=== PATIENT | male | born 1990 | race Caucasian/White ===

== ENCOUNTER 2017-10-30 16:40 | Emergency (ER) | payer MEDICAID, OTHER ==
--- NOTE | 2017-10-30 17:59 | ED PDOC ---
HPI: Seizure Time Seen by Provider: 10/30/17 17:00 Chief Complaint (Nursing): Seizure Chief Complaint (Provider): Seizure History Per: Patient History/Exam Limitations: no limitations Additional Complaint(s): 27 year old male with a past medical history of seizure and former alcoholic ( quit 3 months ago) who presents to the emergency department after experiencing a seizure while working at a [employer]. Reports he fell on the left side of his body while someone witnessed a generalized seizure. States he feels a little better but still has pain to the left side of the face. Associated with a dry cough that has been ongoing for 1 week and feeling anxious lately. Denies fever, vomiting, or diarrhea. Of note, patient is non compliant with seizure medications, Dilantin. Past Medical History Reviewed: Historical Data, Nursing Documentation, Vital Signs Vital Signs: Last Vital Signs Temp 98 F 10/30/17 19:25 Pulse 78 10/30/17 19:25 Resp 20 10/30/17 19:25 BP 120/70 10/30/17 19:25 Pulse Ox 98 10/30/17 19:25 - Medical History PMH: Seizures - Surgical History Surgical History: No Surg Hx - Family History Family History: States: Unknown Family Hx - Social History Current smoker - smoking cessation education provided: No Alcohol: None (Formal alcoholic; quit 3 months ago.) Drugs: Denies - Home Medications Home Medications: Ambulatory Orders Medication Instructions Recorded Phenytoin Sodium Extended 100 mg PO DAILY 07/13/17 [Phenytoin Sodium Extended] chlordiazePOXIDE [Chlordiazepoxide 25 mg PO BID #6 cap 07/13/17 HCl] - Allergies Allergies/Adverse Reactions: Allergies Allergy/AdvReac Type Severity Reaction Status Date / Time No Known Allergies Allergy Unverified 07/13/17 18:00 Review of Systems ROS Statement: Except As Marked, All Systems Reviewed And Found Negative (As per HPI, otherwise negative) Constitutional: Negative for: Fever Respiratory: Positive for: Cough Gastrointestinal: Negative for: Vomiting, Diarrhea Musculoskeletal: Positive for: Other (facial pain) Neurological: Positive for: Seizures (1) Psych: Positive for: Anxiety Physical Exam - Reviewed Nursing Documentation Reviewed: Yes Vital Signs Reviewed: Yes - Physical Exam Appears: Positive for: No Acute Distress Head Exam: Positive for: ATRAUMATIC, NORMAL INSPECTION, NORMOCEPHALIC Skin: Positive for: Normal Color, Warm, Dry Neck: Positive for: Normal Cardiovascular/Chest: Positive for: Regular Rate, Rhythm. Negative for: Murmur Respiratory: Positive for: Normal Breath Sounds. Negative for: Accessory Muscle Use, Respiratory Distress Gastrointestinal/Abdominal: Positive for: Normal Exam, Soft. Negative for: Tenderness Extremity: Positive for: Normal ROM. Negative for: Pedal Edema Neurologic/Psych: Positive for: Alert, senior research consultant II-XII, Oriented (x3), Gait (stable) . Negative for: Motor/Sensory Deficits, Aphasia, Facial Droop - Laboratory Results Result Diagrams: 10/30/17 17:49 10/30/17 17:49 - ECG O2 Sat by Pulse Oximetry: 99 (RA) Pulse Ox Interpretation: Normal Medical Decision Making Medical Decision Making: Time: 1735 Initial impression: Seizure in setting of known non compliance with medication Initial plan: CBC w/ diff CMP Chest x-ray Head CT Maxillofacial w/o contrast CT Reevaluation Time: 1809 --Head CT FINDINGS: HEMORRHAGE: No intracranial hemorrhage. BRAIN: Normal garcia-white matter differentiation and density are appreciated throughout the cerebrum and cerebellum with the brainstem appearing unremarkable as well. There is no mass effect. There is no suspicious extra-axial fluid collection and the midline brain anatomy appears diffusely unremarkable. VENTRICLES: Unremarkable. No hydrocephalus. CALVARIUM: No destructive bony lesion or displaced fracture identified including through the skullbase. PARANASAL SINUSES: Small polyp or cyst left sphenoid sinus. MASTOID AIR CELLS: Unremarkable as visualized. No inflammatory changes. OTHER FINDINGS: None. IMPRESSION: Unremarkable unenhanced CT of the Head. Time: 1814 --Referred to psych because he states he is feeling very anxious. Time: 1827 --Maxill facial FINDINGS: NASAL BONES: Unremarkable. ORBITS: Borderline bilateral medial periorbital soft tissue edema with no bony fracture throughout the bilateral orbits. PARANASAL SINUSES/ MASTOIDS: Clear. MAXILLA: Unremarkable. MANDIBLE/ TEMPOROMANDIBULAR JOINTS: Unremarkable. SKULL BASE: Unremarkable. TEMPORAL BONES: Middle ears and mastoid grossly unremarkable. OTHER FINDINGS: Left maxillary sinus disease incidentally noted. IMPRESSION: Mild bilateral medial preseptal orbital soft tissue edema is questioned without fracture of the facial bones identified bilaterally, including orbits. Incidental left maxillary sinus disease identified. pt aware of CT results Time: 1899 --Transferred to Dr. Yan. --pending work up and reevaluation. --EKG: Normal sinus rhythm at 52 bpm . Chest x-ray indicate no active disease pt cleared by animal husbandry worker as anxiety. given outpt referral for mental health. discussed with patient the important of taking the dilantin for his histoyr of seizures. and the need to follow up with neurologist. he agrees to follow up. instrcuted to return immediately with any worsening or concerning symptoms Scribe Attestation: Documented by Leidy Marte, acting as a scribe for Melanie Snyder MD Provider Scribe Attestation: All medical record entries made by the Scribe were at my direction and personally dictated by me. I have reviewed the chart and agree that the record accurately reflects my personal performance of the history, physical exam, medical decision making, and the department course for this patient. I have also personally directed, reviewed, and agree with the discharge instructions and disposition. Disposition - Clinical Impression Clinical Impression: Anxiety, Seizure - Patient ED Disposition Is Patient to be Admitted: No Counseled Patient/Family Regarding: Studies Performed, Diagnosis, Need For Followup - Disposition Referrals: [facility] [Outside] [facility] [Outside] Panchito Mcnamara MD [Staff Provider] - Disposition: Transfer of Care Disposition Time: 19:00 Condition: IMPROVED Additional Instructions: follow up with outpatient neurology for management of your seizures and to restart your medications also follow up with outpatient psychiatry return to the ED with any worsening or concerning symptoms Instructions: Anxiety, Adult (DC), Seizures, Adult (DC) Forms: [employer] ([place]) Patient Signed Over To: Vern Yan
[2017-10-30 18:02] LABS: BASO % 0.4 % (0.0-2.0); EOS % 0.9 % (0.0-4.0); HEMOGLOBIN 15.6 g/dL (12.0-18.0); LYMPH % 40.7 % (20.0-40.0); MEAN CELL VOLUME 88.1 fl (80.0-94.0); MEAN CORPUSCULAR HEMOGLOBIN 29.5 pg (27.0-31.0); MEAN CORPUSCULAR HGB CONC 33.5 g/dL (33.0-37.0); MEAN PLATELET VOLUME 8.8 fl (7.2-11.7); MONO # 0.3 K/uL (0.0-0.8); MONO % 5.9 % (0.0-10.0); NEUT # 2.6 K/uL (1.8-7.0); NEUT % 52.1 % (50.0-75.0); NRBC % 0.1 % (0.0-0.0); RBC 5.27 Mil/uL (4.40-5.90); RED CELL DISTRIBUTION WIDTH 14.1 % (11.5-14.5)
[2017-10-30 18:08] LABS: ALB/GLOB RATIO 1.2 (1.0-2.1); ALBUMIN 4.4 g/dL (3.5-5.0); ALT/SGPT 44 U/L (21-72); AST/SGOT 40 U/L (17-59); BLOOD UREA NITROGEN 20 mg/dl (9-20); CALCIUM 9.1 mg/dL (8.4-10.2); GFR AFRICAN-AMERICAN > 60; GFR NON-AFRICAN AMERICAN > 60
--- NOTE | 2017-10-30 18:13 | CT ---
PROCEDURE: CT HEAD WITHOUT CONTRAST. HISTORY: headache COMPARISON: None available. TECHNIQUE: Axial computed tomography images were obtained through the head/brain without intravenous contrast. Radiation dose: Total exam DLP = 774.42 mGy-cm. This CT exam was performed using one or more of the following dose reduction techniques: Automated exposure control, adjustment of the mA and/or kV according to patient size, and/or use of iterative reconstruction technique. FINDINGS: HEMORRHAGE: No intracranial hemorrhage. BRAIN: Normal garcia-white matter differentiation and density are appreciated throughout the cerebrum and cerebellum with the brainstem appearing unremarkable as well. There is no mass effect. There is no suspicious extra-axial fluid collection and the midline brain anatomy appears diffusely unremarkable. VENTRICLES: Unremarkable. No hydrocephalus. CALVARIUM: No destructive bony lesion or displaced fracture identified including through the skullbase. PARANASAL SINUSES: Small polyp or cyst left sphenoid sinus. MASTOID AIR CELLS: Unremarkable as visualized. No inflammatory changes. OTHER FINDINGS: None. IMPRESSION: Unremarkable unenhanced CT of the Head.
--- NOTE | 2017-10-30 18:29 | CT ---
PROCEDURE: CT MAXILLOFACIAL BONES WITHOUT CONTRAST HISTORY: seizure and fall COMPARISON: None TECHNIQUE: Contiguous axial CT images of the maxillofacial bones were obtained. Coronal and sagittal reformats were generated. Radiation dose: Total exam DLP = mGy-cm. This CT exam was performed using one or more of the following dose reduction techniques: Automated exposure control, adjustment of the mA and/or kV according to patient size, and/or use of iterative reconstruction technique. FINDINGS: NASAL BONES: Unremarkable. ORBITS: Borderline bilateral medial periorbital soft tissue edema with no bony fracture throughout the bilateral orbits. PARANASAL SINUSES/ MASTOIDS: Clear. MAXILLA: Unremarkable. MANDIBLE/ TEMPOROMANDIBULAR JOINTS: Unremarkable. SKULL BASE: Unremarkable. TEMPORAL BONES: Middle ears and mastoid grossly unremarkable. OTHER FINDINGS: Left maxillary sinus disease incidentally noted. IMPRESSION: Mild bilateral medial preseptal orbital soft tissue edema is questioned without fracture of the facial bones identified bilaterally, including orbits. Incidental left maxillary sinus disease identified.
--- NOTE | 2017-10-30 18:50 | RAD ---
HISTORY: Cough. COMPARISON: No prior. TECHNIQUE: Chest PA and lateral FINDINGS: LUNGS: No active pulmonary disease. PLEURA: No significant pleural effusion identified. No pneumothorax apparent. CARDIOVASCULAR: Normal. OSSEOUS STRUCTURES: No significant abnormalities. VISUALIZED UPPER ABDOMEN: Normal. OTHER FINDINGS: None. IMPRESSION: No active disease.
--- NOTE | 2017-10-30 19:10 | ED PDOC ---
- Laboratory Results Result Diagrams: 10/30/17 17:49 10/30/17 17:49 - ECG O2 Sat by Pulse Oximetry: 99 (RA) Pulse Ox Interpretation: Normal Medical Decision Making Medical Decision Making: Time: 1899 --Patient endorsed from Dr. Navarro to me. --Pending crisis, reevaluation and dispo. Scribe Attestation: Documented by Leidy Marte, acting as a scribe for Vern Yan MD Provider Scribe Attestation: All medical record entries made by the Scribe were at my direction and personally dictated by me. I have reviewed the chart and agree that the record accurately reflects my personal performance of the history, physical exam, medical decision making, and the department course for this patient. I have also personally directed, reviewed, and agree with the discharge instructions and disposition. Disposition - Disposition Condition: STABLE Forms: [employer] ([place]an)
[2017-10-30 19:27] VITALS: BP 120/70; PULSE 78; RESP 20; TEMP 98
[2017-11-04 16:27] VITALS: O2SAT 99
== END 2017-10-30 19:25 | disposition home or self-care (01) ==
LOC: H.ER 16:40
DX: R56.9 Unspecified convulsions (principal); F41.9 Anxiety disorder, unspecified; Z91.14 Patient's other noncompliance with medication regimen

== ENCOUNTER 2018-01-10 22:38 | Inpatient (IN) | payer MEDICAID, OTHER ==
[2018-01-10] MEDS ORDERED: Alum-Mag Hydrox-Simethicone Susp (30 mL) PO STA (23:08)
[2018-01-10] MEDS ORDERED: Sodium Chloride 0.9% 1,000 ML IV STA (23:09)
--- NOTE | 2018-01-10 23:16 | ED PDOC ---
HPI:Nausea, Vomiting, Diarrhea Time Seen by Provider: 01/10/18 22:48 Chief Complaint (Nursing): GI Problem Chief Complaint (Provider): GI Problem History Per: Patient History/Exam Limitations: no limitations Onset/Duration Of Symptoms: Hrs (x 3 (8 pm) ) Current Symptoms Are (Timing): Still Present Associated Symptoms: Vomiting Additional Complaint(s): 27 year old male with history of seizures and an esophageal tear (1 year ago) presents to the ED with vomiting since 8 pm this evening. 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 He had two episodes of vomiting clear liquid which he followed with drinking a lot of water. Shortly after, he vomited again, but only blood twice. Patient complains of some post- vomiting chest pain. He has not eaten anything all day and denies diarrhea, abdominal pain, and nausea. PMD: none provided Past Medical History Reviewed: Historical Data, Nursing Documentation, Vital Signs Vital Signs: Last Vital Signs Temp 98 F 01/10/18 22:44 Pulse 61 01/10/18 22:44 Resp 20 01/10/18 22:44 BP 141/76 01/10/18 22:44 Pulse Ox 100 01/10/18 22:44 - Medical History PMH: Seizures - Surgical History Surgical History: No Surg Hx - Family History Family History: States: Unknown Family Hx - Social History Alcohol: None - Home Medications Home Medications: Ambulatory Orders Medication Instructions Recorded Mirtazapine [Remeron] 30 mg PO HS 01/11/18 OXcarbazepine [Trileptal] 150 mg PO BID 01/11/18 Ondansetron ODT [Zofran ODT] 4 mg PO Q8 PRN #12 odt 01/11/18 - Allergies Allergies/Adverse Reactions: Allergies Allergy/AdvReac Type Severity Reaction Status Date / Time No Known Allergies Allergy Verified 01/10/18 22:44 Review of Systems ROS Statement: Except As Marked, All Systems Reviewed And Found Negative Gastrointestinal: Positive for: Vomiting. Negative for: Nausea, Abdominal Pain , Diarrhea Physical Exam - Reviewed Nursing Documentation Reviewed: Yes Vital Signs Reviewed: Yes - Physical Exam Appears: Positive for: Non-toxic, No Acute Distress Head Exam: Positive for: ATRAUMATIC, NORMAL INSPECTION, NORMOCEPHALIC Skin: Positive for: Normal Color, Warm, Dry Eye Exam: Positive for: EOMI, Normal appearance, PERRL Neck: Positive for: Normal, Painless ROM, Supple Cardiovascular/Chest: Positive for: Regular Rate, Rhythm. Negative for: Murmur Respiratory: Positive for: Normal Breath Sounds. Negative for: Respiratory Distress Gastrointestinal/Abdominal: Positive for: Normal Exam, Soft. Negative for: Tenderness Back: Positive for: Normal Inspection. Negative for: L CVA Tenderness, R CVA Tenderness Extremity: Positive for: Normal ROM. Negative for: Deformity Neurologic/Psych: Positive for: Alert, Oriented (x 3). Negative for: Motor/ Sensory Deficits - Laboratory Results Result Diagrams: 01/11/18 12:00 01/11/18 12:00 - ECG O2 Sat by Pulse Oximetry: 100 (RA) Pulse Ox Interpretation: Normal Medical Decision Making Medical Decision Makin:08 Impression: vomiting and vomiting with blood Differential diagnoses include but are not limited to: acute gastritis, acute pancreatitis; GI bleed Caitlyn-Blount vs PUD Initial Plan: --Blood type --CMP --UDS --Lipase --CBC --PTT --Prothrombin -_CXR --Lidocaine 2% --Maalox 30 ml PO --Pepcid 20 mg IVP --Zofran 4 mg IVP Lab results reveal elevated LFTs and bilirubin. 00:25 --Abdomen US --Bilirubin --Tegretol 400 mg PO Time: 02:38 Abdomen US FINDINGS: Liver: The liver is increased in echogenicity and measures 17.9 cm. No intrahepatic bile duct dilation. Gallbladder: The gallbladder wall is not significantly thickened, measuring approximately 3 mm. No stones or sludge is seen within the gallbladder. Common bile duct: The common bile duct measures 4 mm. No stones. No dilation. Pancreas: Visualized pancreas is unremarkable. Right kidney: The right kidney measures 10.3 cm and is unremarkable. No stones. No hydronephrosis. Aorta: Visualized aorta and IVC are unremarkable. IMPRESSION: Hepatic steatosis. Time; 06:00 --Spoke to Dr. Alli Smith who recommends IV protonix, no NG tube, and admission. Time: 06:45 --Patient will be admitted due to upper GI bleed with positive orthostatics and elevated LFTs. Scribe Attestation: Documented by Tania Carvalho, acting as a scribe for Sierra Rodriguez MD Provider Scribe Attestation: All medical record entries made by the Scribe were at my direction and personally dictated by me. I have reviewed the chart and agree that the record accurately reflects my personal performance of the history, physical exam, medical decision making, and the department course for this patient. I have also personally directed, reviewed, and agree with the discharge instructions and disposition. Disposition - Clinical Impression Clinical Impression: Vomiting, Elevated LFTs, Upper GI hemorrhage - Patient ED Disposition Is Patient to be Admitted: Yes Discussed With : Aisha Bassett Doctor Will See Patient In The: ED Counseled Patient/Family Regarding: Studies Performed, Diagnosis - Disposition Disposition Time: 06:30 Condition: FAIR - Pt Status Changed To: Hospital Disposition Of: Inpatient - Admit Certification Admit to Inpatient:: After my assessment, the patient will require hospitalization for at least two midnights. This is because of the severity of symptoms shown, intensity of services needed, and/or the medical risk in this patient being treated as an outpatient. - POA Present On Arrival: None
[2018-01-10 23:43] LABS: BASO % 0.3 % (0.0-2.0); EOS % 0.3 % (0.0-4.0); HEMOGLOBIN 13.8 g/dL (12.0-18.0); LYMPH # 2.4 K/uL (1.0-4.3); LYMPH % 41.7 % (20.0-40.0); MEAN CELL VOLUME 93.5 fl (80.0-94.0); MEAN CORPUSCULAR HEMOGLOBIN 33.4 pg (27.0-31.0); MEAN CORPUSCULAR HGB CONC 35.7 g/dL (33.0-37.0); MEAN PLATELET VOLUME 9.5 fl (7.2-11.7); MONO # 0.5 K/uL (0.0-0.8); MONO % 8.8 % (0.0-10.0); NEUT # 2.8 K/uL (1.8-7.0); NEUT % 48.9 % (50.0-75.0); NRBC % 0.1 % (0.0-0.0); RBC 4.14 Mil/uL (4.40-5.90); RED CELL DISTRIBUTION WIDTH 16.6 % (11.5-14.5); WHITE BLOOD COUNT 5.8 K/uL (4.8-10.8)
[2018-01-10 23:59] LABS: INR 1.2 (0.9-1.2); PARTIAL THROMBOPLASTIN TIME 28.5 Seconds (25.6-37.1); PROTHROMBIN TIME 12.8 Seconds (9.8-13.1)
[2018-01-11 00:03] LABS: CALCIUM 8.8 mg/dL (8.4-10.2); GFR AFRICAN-AMERICAN > 60; GFR NON-AFRICAN AMERICAN > 60; LIPASE 155 U/L (23-300)
[2018-01-11 00:04] LABS: ALB/GLOB RATIO 1.1 (1.0-2.1); ALBUMIN 3.9 g/dL (3.5-5.0); ALT/SGPT 322 U/L (21-72); AST/SGOT 640 U/L (17-59); BLOOD UREA NITROGEN 22 mg/dl (9-20)
[2018-01-11] MEDS ORDERED: Alum-Mag Hydrox-Simethicone Susp (30 mL) ONE (00:33)
[2018-01-11] MEDS ORDERED: Sodium Chloride 0.9% 1,000 ML IV STA (06:42)
[2018-01-11] MEDS ORDERED: Pantoprazole 40 MG in Sodium Chloride 0.9% 100 ML IVPB ONE (06:44)
[2018-01-11 07:20] LABS: MEAN CELL VOLUME 94.8 fl (80.0-94.0); MEAN CORPUSCULAR HEMOGLOBIN 35.1 pg (27.0-31.0); RBC 2.85 Mil/uL (4.40-5.90); RED CELL DISTRIBUTION WIDTH 16.3 % (11.5-14.5); WHITE BLOOD COUNT 4.9 K/uL (4.8-10.8)
--- NOTE | 2018-01-11 07:58 | CP.PCM.HP ---
History of Present Illness - History of Present Illness History of Present Illness: Chief Complaint : Hematemesis HPI: 27 y/o male, with hx of Alcoholism( quit 2 yrs ago) , Seizure Disorder, Previous Esophageal Tear, Depression, was brought in because of hematemesis. Patient has been doing fine, until 1 day prior to presentation to the ED that he started feeling nauseous. 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 This persisted throughout the day- vomiting liquid until the night time when he started having bloody vomitus. He denies any recent alcohol intake ( last was 1 drink in November ) , admits to smoking Marijuana a few days ago. He had sushi 1 day prior however denies having any abdominal pain nor diarrhea. He takes his Trileptal for his seizure and Remeron at bedtime for Depression however admits to having Tylenol pm almost daily for his Insomnia. His boss called 911 and while in the ambulance , he vomited a large amount of blood and had any episode in the ED. At present , feels lightheaded. He had a similar episode 1 1/2 years ago - had EGD at a [facility] and was told he had an Esophageal tear. Neuro : Dr Mcnamara Present on Admission - Present on Admission Any Indicators Present on Admission: No Review of Systems - Review of Systems All systems: reviewed and no additional remarkable complaints except - Constitutional Constitutional: Weakness - EENT Eyes: absent: Blurred Vision, Change in Vision Ears: Dizziness. absent: Decreased Hearing Nose/Mouth/Throat: absent: Nasal Congestion, Nasal Discharge - Cardiovascular Cardiovascular: Lightheadedness. absent: Chest Pain, Chest Pain at Rest - Respiratory Respiratory: absent: Cough, Dyspnea, Dyspnea on Exertion - Gastrointestinal Gastrointestinal: Hematemesis, Nausea, Vomiting. absent: Abdominal Pain, Constipation, Diarrhea - Genitourinary Genitourinary: absent: Difficulty Urinating, Dysuria - Musculoskeletal Musculoskeletal: absent: Arthralgias, Back Pain - Integumentary Integumentary: absent: Bleeding Lesions - Neurological Neurological: absent: Confusion, Focal Weakness, Memory Loss - Psychiatric Psychiatric: Depression. absent: Anxiety, Confusion - Endocrine Endocrine: absent: Polydipsia, Polyphagia, Polyuria - Hematologic/Lymphatic Hematologic: absent: Easy Bleeding, Easy Bruising Past Patient History - Infectious Disease Hx of Infectious Diseases: None - Tetanus Immunizations Tetanus Immunization: Unknown - Past Medical History & Family History Past Medical History?: Yes Past Family History: Reviewed and not pertinent Pertinent Family History: DM - grandparents Asthma - father - Past Social History Smoking Status: Light Smoker < 10 Cigarettes Daily Chewing Tobacco Use: No Cigar Use: No Occupation: [employer] Alcohol: None Drugs: Cannabis Domestic Violence: Negative - CARDIAC Hx Cardiac Disorders: No - PULMONARY Hx Respiratory Disorders: No - NEUROLOGICAL Hx Neurological Disorder: Yes Hx Seizures: Yes - HEENT Hx HEENT Problems: No - RENAL Hx Chronic Kidney Disease: No - ENDOCRINE/METABOLIC Hx Endocrine Disorders: No - HEMATOLOGICAL/ONCOLOGICAL Hx Blood Disorders: No Hx Blood Transfusions: Yes - INTEGUMENTARY Hx Dermatological Problems: No - MUSCULOSKELETAL/RHEUMATOLOGICAL Hx Musculoskeletal Disorders: No - GASTROINTESTINAL Hx Gastrointestinal Disorders: Yes (Esophageal Tear) - GENITOURINARY/GYNECOLOGICAL Hx Genitourinary Disorders: No - PSYCHIATRIC Hx Psychophysiologic Disorder: Yes Hx Depression: Yes Hx Substance Use: Yes (yes - Alcohol - quit 2 yrs ago) - SURGICAL HISTORY Hx Surgeries: No - ANESTHESIA Hx Anesthesia: No Hx Anesthesia Reactions: No Hx Malignant Hyperthermia: No Meds Home Medications: Home Medication List Medication Instructions Recorded Confirmed Type Ondansetron ODT [Zofran ODT] 4 mg PO Q8 PRN #12 odt 01/11/18 Rx Allergies/Adverse Reactions: Allergies Allergy/AdvReac Type Severity Reaction Status Date / Time No Known Allergies Allergy Verified 01/10/18 22:44 Physical Exam - Constitutional Appears: Non-toxic, No Acute Distress - Head Exam Head Exam: ATRAUMATIC, NORMAL INSPECTION, NORMOCEPHALIC - Eye Exam Eye Exam: EOMI, Normal appearance, PERRL Pupil Exam: NORMAL ACCOMODATION - ENT Exam ENT Exam: Mucous Membranes Dry, Normal External Ear Exam - Neck Exam Neck exam: Positive for: Full Rom. Negative for: Meningismus - Respiratory Exam Respiratory Exam: NORMAL BREATHING PATTERN. absent: Rales, Rhonchi, Wheezes, Respiratory Distress - Cardiovascular Exam Cardiovascular Exam: REGULAR RHYTHM, +S1, +S2 - GI/Abdominal Exam GI & Abdominal Exam: Normal Bowel Sounds, Soft. absent: Tenderness - Extremities Exam Extremities exam: Positive for: full ROM, normal capillary refill, pedal pulses present. Negative for: calf tenderness, pedal edema - Back Exam Back exam: FULL ROM, NORMAL INSPECTION. absent: CVA tenderness (L), CVA tenderness (R), paraspinal tenderness, vertebral tenderness - Neurological Exam Neurological exam: Alert, CN II-XII Intact, Oriented x3, Reflexes Normal - Psychiatric Exam Psychiatric exam: Normal Affect, Normal Mood - Skin Skin Exam: Dry, Normal Color, Warm Results - Vital Signs Recent Vital Signs: Last Vital Signs Temp 98 F 01/10/18 22:44 Pulse 88 01/11/18 01:17 Resp 16 01/11/18 01:17 BP 103/59 L 01/11/18 01:17 Pulse Ox 100 01/11/18 06:55 - Labs Result Diagrams: 01/11/18 07:15 01/10/18 23:30 Labs: Laboratory Results - last 24 hr 01/10/18 01/10/18 01/10/18 23:30 23:30 23:30 WBC 5.8 RBC 4.14 L Hgb 13.8 Hct 38.7 MCV 93.5 D MCH 33.4 H MCHC 35.7 RDW 16.6 H Plt Count 170 MPV 9.5 Neut % (Auto) 48.9 L Lymph % (Auto) 41.7 H [place] % (Auto) 8.8 Eos % (Auto) 0.3 Baso % (Auto) 0.3 Neut # (Auto) 2.8 Lymph # (Auto) 2.4 [place] # (Auto) 0.5 Eos # (Auto) 0.0 Baso # (Auto) 0.0 PT 12.8 INR 1.2 APTT 28.5 Sodium 134 Potassium 4.2 Chloride 95 L Carbon Dioxide 22 Anion Gap 21 H BUN 22 H Creatinine 1.0 Est GFR ( Amer) > 60 Est GFR (Non-Af Amer) > 60 Random Glucose 96 Calcium 8.8 Total Bilirubin 3.0 H Direct Bilirubin AST 640 H D ALT 322 H D Alkaline Phosphatase 200 H D Total Protein 7.3 Albumin 3.9 Globulin 3.4 Albumin/Globulin Ratio 1.1 Lipase 155 Alcohol, Quantitative Blood Type Blood Type Confirm Antibody Screen BBK History Checked 01/11/18 01/11/18 01/11/18 00:10 00:53 01:20 WBC RBC Hgb Hct MCV MCH MCHC RDW Plt Count MPV Neut % (Auto) Lymph % (Auto) [place] % (Auto) Eos % (Auto) Baso % (Auto) Neut # (Auto) Lymph # (Auto) [place] # (Auto) Eos # (Auto) Baso # (Auto) PT INR APTT Sodium Potassium Chloride Carbon Dioxide Anion Gap BUN Creatinine Est GFR ( Amer) Est GFR (Non-Af Amer) Random Glucose Calcium Total Bilirubin Direct Bilirubin 2.1 H AST ALT Alkaline Phosphatase Total Protein Albumin Globulin Albumin/Globulin Ratio Lipase Alcohol, Quantitative Blood Type A POSITIVE Blood Type Confirm A POSITIVE Antibody Screen Negative BBK History Checked No verified bt 01/11/18 01/11/18 07:15 07:30 WBC 4.9 RBC 2.85 L Hgb 10.0 L D Hct 27.0 L MCV 94.8 H MCH 35.1 H MCHC 37.0 RDW 16.3 H Plt Count 146 MPV Neut % (Auto) Lymph % (Auto) [place] % (Auto) Eos % (Auto) Baso % (Auto) Neut # (Auto) Lymph # (Auto) [place] # (Auto) Eos # (Auto) Baso # (Auto) PT INR APTT Sodium Potassium Chloride Carbon Dioxide Anion Gap BUN Creatinine Est GFR ( Amer) Est GFR (Non-Af Amer) Random Glucose Calcium Total Bilirubin Direct Bilirubin AST ALT Alkaline Phosphatase Total Protein Albumin Globulin Albumin/Globulin Ratio Lipase Alcohol, Quantitative < 10 Blood Type Blood Type Confirm Antibody Screen BBK History Checked Assessment & Plan (1) Upper GI hemorrhage Status: Acute (2) Elevated LFTs Status: Acute (3) Seizure Status: Chronic (4) Depression Status: Chronic - Assessment and Plan (Free Text) Assessment: 27 y/o gent , brought in because of hematemesis after several episodes of vomiting . Previous hx of esophageal Tear (2016) (1) Upper GI hemorrhage prob sec to Deyanira Blount Tear Status: Acute IVF hydration Transfuse prn Protonix bolus followed by drip GI consult - Dr Smith was called by ED physiciam serial CBC (2) Elevated LFTs Status: Acute unclear etiology - hx of daily Tylenol pm intake for sleep, also on Trileptal and Remeron previous hx of Alcoholism check Hepatitis panel GI consult Navdeep Chen (3) Seizure Status: Chronic cont Trileptal follows up with Dr Mcnamara (4) Depression Status: Chronic cont Remeron stable 5. Acute Blood Loss Anemia Hbg dropped from 13.8 to 10 Transfuse prn monitor closely Crossmatch PRBC DVT proph - SCD , no anticoag sec to GI bleed Decision To Admit - Pt Status Changed To: Hospital Disposition Of: Inpatient - Admit Certification Admit to Inpatient:: After my assessment, the patient will require hospitalization for at least two midnights. This is because of the severity of symptoms shown, intensity of services needed, and/or the medical risk in this patient being treated as an outpatient. - . Bed Request Type: Telemetry Admitting Physician: Aisha Bassett
[2018-01-11] MEDS: Pantoprazole 40 MG in Sodium Chloride 0.9% 100 ML IVPB SCH ×2 (08:01→12:27)
[2018-01-11] MEDS: Sodium Chloride 0.9% 1,000 ML IV SCH ×2 (08:20→14:46)
[2018-01-11] MEDS ORDERED: Thiamine 100 mg/ml Inj IM SCH (09:00)
[2018-01-11] MEDS ORDERED: Sodium Chloride 0.9% 500 ML IV ONE (09:18)
--- NOTE | 2018-01-11 09:21 | RAD ---
Date of service: 01/11/2018 PROCEDURE: CHEST RADIOGRAPH, 1 VIEW HISTORY: chest pain COMPARISON: Chest radiograph dated 10/30/2017. FINDINGS: LUNGS: Clear. PLEURA: No pneumothorax or pleural fluid seen. CARDIOVASCULAR: Normal. OSSEOUS STRUCTURES: No significant abnormalities. VISUALIZED UPPER ABDOMEN: Left upper quadrant surgical clips redemonstrated. OTHER FINDINGS: None. IMPRESSION: No active disease.
--- NOTE | 2018-01-11 09:22 | US ---
Date of service: 01/11/2018 HISTORY: vomiting and elevated LFTs COMPARISON: None. TECHNIQUE: Sonographic evaluation of the right upper quadrant of the abdomen. FINDINGS: LIVER: Enlarged, measuring 17.9 cm in length. Increased echogenicity of the liver parenchyma. No mass. No intrahepatic bile duct dilatation. GALLBLADDER: Unremarkable. No gallstones. COMMON BILE DUCT: Measures 4 mm. No stones. No dilatation. PANCREAS: Unremarkable as visualized. No mass. No ductal dilatation. RIGHT KIDNEY: Measures 10.3 x 5.8 x 4.3 cm in length. Normal echogenicity. No calculus, mass, or hydronephrosis. AORTA: No aneurysmal dilatation. IVC: Unremarkable. OTHER FINDINGS: None . IMPRESSION: Hepatic steatosis.
[2018-01-11 12:36] LABS: ALBUMIN 2.2 g/dL (3.5-5.0); ALT/SGPT 232 U/L (21-72); AST/SGOT 477 U/L (17-59); BLOOD UREA NITROGEN 23 mg/dl (9-20); CALCIUM 7.1 mg/dL (8.4-10.2); GFR AFRICAN-AMERICAN > 60; GFR NON-AFRICAN AMERICAN > 60
--- NOTE | 2018-01-11 12:44 | CP.PCM.CON ---
History of Present Illness - History of Present Illness History of Present Illness: 27 yo male admitted with dizzyness, hematemesis , and elevated liver enzymes.Symptoms started when working at [employer] and started vomiting clear liquids. After repeated vomiting his emesis was bloody. On trileptal for control of siezures. Also uses Remeron at bedtime and Tylenol for sleep. !.5 years ago also vomited blood and he was told he had esophageal tear. Review of Systems - Constitutional Constitutional: absent: Chills - EENT Eyes: absent: Blurred Vision Ears: absent: Decreased Hearing Nose/Mouth/Throat: absent: Epistaxis - Cardiovascular Cardiovascular: absent: Chest Pain - Respiratory Respiratory: absent: Dyspnea - Gastrointestinal Gastrointestinal: absent: Abdominal Pain - Genitourinary Genitourinary: absent: Change in Urinary Stream Past Patient History - Infectious Disease Hx of Infectious Diseases: None - Tetanus Immunizations Tetanus Immunization: Unknown - Past Medical History & Family History Past Medical History?: Yes Past Family History: Reviewed and not pertinent - Past Social History Smoking Status: Light Smoker < 10 Cigarettes Daily Chewing Tobacco Use: No Cigar Use: No Occupation: [employer] Alcohol: None Drugs: Cannabis Domestic Violence: Negative - CARDIAC Hx Cardiac Disorders: No - PULMONARY Hx Respiratory Disorders: No - NEUROLOGICAL Hx Neurological Disorder: Yes Hx Seizures: Yes - HEENT Hx HEENT Problems: No - RENAL Hx Chronic Kidney Disease: No - ENDOCRINE/METABOLIC Hx Endocrine Disorders: No - HEMATOLOGICAL/ONCOLOGICAL Hx Blood Disorders: No Hx Blood Transfusions: Yes - INTEGUMENTARY Hx Dermatological Problems: No - MUSCULOSKELETAL/RHEUMATOLOGICAL Hx Musculoskeletal Disorders: No - GASTROINTESTINAL Hx Gastrointestinal Disorders: Yes (Esophageal Tear) - GENITOURINARY/GYNECOLOGICAL Hx Genitourinary Disorders: No - PSYCHIATRIC Hx Psychophysiologic Disorder: Yes Hx Depression: Yes Hx Substance Use: Yes (yes - Alcohol - quit 2 yrs ago) - SURGICAL HISTORY Hx Surgeries: No - ANESTHESIA Hx Anesthesia: No Hx Anesthesia Reactions: No Hx Malignant Hyperthermia: No Meds Home Medications: Home Medication List Medication Instructions Recorded Confirmed Type Ondansetron ODT [Zofran ODT] 4 mg PO Q8 PRN #12 odt 01/11/18 Rx Allergies/Adverse Reactions: Allergies Allergy/AdvReac Type Severity Reaction Status Date / Time No Known Allergies Allergy Verified 01/10/18 22:44 - Medications Medications: Current Medications Pantoprazole Sodium 40 mg/ (Sodium Chloride) 100 mls @ 20 mls/hr IVPB Q5H [facility] PRN Reason: 8 MG/HR Last Admin: 01/11/18 12:27 Dose: 20 mls/hr Sodium Chloride (Sodium Chloride 0.9%) 1,000 mls @ 150 mls/hr IV .Q6H40M [facility] Stop: 01/12/18 07:38 Last Admin: 01/11/18 08:20 Dose: 150 mls/hr Mirtazapine (Remeron) 30 mg PO HS [facility] Ondansetron HCl (Zofran Inj) 4 mg IVP Q6 PRN PRN Reason: Nausea/Vomiting Oxcarbazepine (Trileptal) 150 mg PO BID [facility] Last Admin: 01/11/18 09:58 Dose: 150 mg Thiamine HCl (Vitamin B1 Inj) 100 mg IM DAILY [facility] Last Admin: 01/11/18 09:59 Dose: 100 mg Physical Exam - Constitutional Appears: No Acute Distress - Head Exam Head Exam: ATRAUMATIC - Eye Exam Eye Exam: Normal appearance Pupil Exam: NORMAL ACCOMODATION - ENT Exam ENT Exam: Mucous Membranes Moist - Neck Exam Neck exam: Positive for: Normal Inspection - Respiratory Exam Respiratory Exam: NORMAL BREATHING PATTERN - Cardiovascular Exam Cardiovascular Exam: REGULAR RHYTHM, +S1, +S2 - GI/Abdominal Exam GI & Abdominal Exam: Normal Bowel Sounds, Soft. absent: Tenderness - Exam External exam: absent: NORMAL EXTERNAL EXAM Results - Vital Signs Recent Vital Signs: Last Vital Signs Temp 98.9 F 01/11/18 12:00 Pulse 104 H 01/11/18 12:00 Resp 20 01/11/18 12:00 BP 94/59 L 01/11/18 12:00 Pulse Ox 100 01/11/18 12:00 - Labs Result Diagrams: 01/11/18 07:15 01/11/18 12:00 Labs: Laboratory Results - last 24 hr 01/10/18 01/10/18 01/10/18 23:30 23:30 23:30 WBC 5.8 RBC 4.14 L Hgb 13.8 Hct 38.7 MCV 93.5 D MCH 33.4 H MCHC 35.7 RDW 16.6 H Plt Count 170 MPV 9.5 Neut % (Auto) 48.9 L Lymph % (Auto) 41.7 H [place] % (Auto) 8.8 Eos % (Auto) 0.3 Baso % (Auto) 0.3 Neut # (Auto) 2.8 Lymph # (Auto) 2.4 [place] # (Auto) 0.5 Eos # (Auto) 0.0 Baso # (Auto) 0.0 PT 12.8 INR 1.2 APTT 28.5 Sodium 134 Potassium 4.2 Chloride 95 L Carbon Dioxide 22 Anion Gap 21 H BUN 22 H Creatinine 1.0 Est GFR ( Amer) > 60 Est GFR (Non-Af Amer) > 60 Random Glucose 96 Calcium 8.8 Total Bilirubin 3.0 H Direct Bilirubin AST 640 H D ALT 322 H D Alkaline Phosphatase 200 H D Total Protein 7.3 Albumin 3.9 Globulin 3.4 Albumin/Globulin Ratio 1.1 Lipase 155 Alcohol, Quantitative Blood Type Blood Type Confirm Antibody Screen BBK History Checked 01/11/18 01/11/18 01/11/18 00:10 00:53 01:20 WBC RBC Hgb Hct MCV MCH MCHC RDW Plt Count MPV Neut % (Auto) Lymph % (Auto) [place] % (Auto) Eos % (Auto) Baso % (Auto) Neut # (Auto) Lymph # (Auto) [place] # (Auto) Eos # (Auto) Baso # (Auto) PT INR APTT Sodium Potassium Chloride Carbon Dioxide Anion Gap BUN Creatinine Est GFR ( Amer) Est GFR (Non-Af Amer) Random Glucose Calcium Total Bilirubin Direct Bilirubin 2.1 H AST ALT Alkaline Phosphatase Total Protein Albumin Globulin Albumin/Globulin Ratio Lipase Alcohol, Quantitative Blood Type A POSITIVE Blood Type Confirm A POSITIVE Antibody Screen Negative BBK History Checked No verified bt 01/11/18 01/11/18 01/11/18 07:15 07:30 12:00 WBC 4.9 RBC 2.85 L Hgb 10.0 L D Hct 27.0 L MCV 94.8 H MCH 35.1 H MCHC 37.0 RDW 16.3 H Plt Count 146 MPV Neut % (Auto) Lymph % (Auto) [place] % (Auto) Eos % (Auto) Baso % (Auto) Neut # (Auto) Lymph # (Auto) [place] # (Auto) Eos # (Auto) Baso # (Auto) PT INR APTT Sodium 135 Potassium 4.3 Chloride 106 Carbon Dioxide 24 Anion Gap 9 L BUN 23 H Creatinine 0.9 Est GFR ( Amer) > 60 Est GFR (Non-Af Amer) > 60 Random Glucose 86 Calcium 7.1 L Total Bilirubin 1.7 H Direct Bilirubin AST 477 H D ALT 232 H D Alkaline Phosphatase 104 Total Protein 4.3 L Albumin 2.2 L D Globulin 2.2 Albumin/Globulin Ratio 1.0 Lipase Alcohol, Quantitative < 10 Blood Type Blood Type Confirm Antibody Screen BBK History Checked Assessment & Plan (1) Elevated LFTs Assessment and Plan: Possiblities include viral cause vs hypotension due to vomiting. LFTs better today. Status: Acute (2) Upper GI hemorrhage Assessment and Plan: Possibly Deyanira Blount. No active bleeding now On protonix Status: Acute
[2018-01-11 12:50] LABS: MEAN CELL VOLUME 95.6 fl (80.0-94.0); MEAN CORPUSCULAR HEMOGLOBIN 35.8 pg (27.0-31.0); RBC 2.22 Mil/uL (4.40-5.90); RED CELL DISTRIBUTION WIDTH 16.2 % (11.5-14.5); WHITE BLOOD COUNT 3.4 K/uL (4.8-10.8)
[2018-01-11 13:41] LABS: MEAN CORPUSCULAR HGB CONC 37.5 g/dL (33.0-37.0)
[2018-01-11 17:21] LABS: GAMMA GLUTAMYL TRANSPEPTIDASE 1303 U/L (8-78)
[2018-01-11 17:24] VITALS: RESP 18
[2018-01-11 17:40] VITALS: BP 101/63; TEMP 98.6
[2018-01-11 18:59] VITALS: O2SAT 100
[2018-01-11 19:42] VITALS: PULSE 110
[2018-01-12 07:38] LABS: HEPATITIS B SURFACE AG Negative (NEGATIVE)
[2018-01-12 07:44] LABS: HEPATITIS A IGM NEGATIVE (NEGATIVE); HEPATITIS B CORE AB NEGATIVE (NEGATIVE)
[2018-01-12 07:55] LABS: HEPATITIS C ANTIBODY NEGATIVE (NEGATIVE)
== END 2018-01-11 18:45 | disposition left against medical advice (07) | DRG 369 ==
LOC: H.ER 22:38 → H.ERHOLD 01-11 06:45 → H.TEL 01-11 08:55
PROVIDERS: ADMIT Internal Medicine; ATTEND Internal Medicine
PROC: 30233N1 Transfusion of Nonautologous Red Blood Cells into Peripheral Vein, Percutaneous Approach (ICD-10-PCS; principal; 2018-01-11)
DX: K22.6 Gastro-esophageal laceration-hemorrhage syndrome (principal); D62 Acute posthemorrhagic anemia; F10.21 Alcohol dependence, in remission; F32.9 Major depressive disorder, single episode, unspecified; R56.9 Unspecified convulsions; G47.00 Insomnia, unspecified; F17.210 Nicotine dependence, cigarettes, uncomplicated

== ENCOUNTER 2018-01-11 19:04 | Emergency (ER) | payer SELFPAY ==
[2018-01-11 19:29] VITALS: BP 104/73; PULSE 138; RESP 20; TEMP 98.2; O2SAT 100
== END 2018-01-11 20:08 | disposition left against medical advice (07) ==
LOC: H.ER 19:04
DX: Z02.89 Encounter for other administrative examinations (principal)

== ENCOUNTER 2018-01-12 15:05 | Inpatient (IN) | payer SELFPAY ==
[2018-01-12] MEDS ORDERED: Sodium Chloride 0.9% 1,000 ML IV STA (16:48)
[2018-01-12 17:41] LABS: BASO % 0.6 % (0.0-2.0); EOS % 0.3 % (0.0-4.0); LYMPH # 1.3 K/uL (1.0-4.3); LYMPH % 39.2 % (20.0-40.0); MEAN CORPUSCULAR HEMOGLOBIN 32.6 pg (27.0-31.0); MEAN CORPUSCULAR HGB CONC 34.7 g/dL (33.0-37.0); MEAN PLATELET VOLUME 9.9 fl (7.2-11.7); MONO # 0.2 K/uL (0.0-0.8); MONO % 5.3 % (0.0-10.0); NEUT # 1.8 K/uL (1.8-7.0); NEUT % 54.6 % (50.0-75.0); NRBC % 0.1 % (0.0-0.0); RBC 1.88 Mil/uL (4.40-5.90); RED CELL DISTRIBUTION WIDTH 16.8 % (11.5-14.5); WHITE BLOOD COUNT 3.3 K/uL (4.8-10.8)
--- NOTE | 2018-01-12 17:47 | ED PDOC ---
HPI:Nausea, Vomiting, Diarrhea Time Seen by Provider: 01/12/18 16:35 Chief Complaint (Nursing): GI Problem Chief Complaint (Provider): GI Problem History Per: Patient History/Exam Limitations: no limitations Onset/Duration Of Symptoms: Days (x 2) Current Symptoms Are (Timing): Still Present Associated Symptoms: Vomiting, Diarrhea Additional Complaint(s): 27 year old male with a history of esophageal tear and seizures presents to the ED with vomiting blood and bloody diarrhea. He also report dark stool and right sided abdominal pain after he vomited for several hours at home. Patient was treated at this ED two days ago and admitted. He received a blood transfusion, was seen by GI doctor and signed out AMA this morning. Patient has returned due to concern about bloody diarrhea and vomit. PMD:none provided Past Medical History Reviewed: Historical Data, Nursing Documentation, Vital Signs Vital Signs: Last Vital Signs Temp 98.9 F 01/12/18 15:24 Pulse 107 H 01/12/18 15:24 Resp 18 01/12/18 15:24 BP 93/53 L 01/12/18 15:24 Pulse Ox 100 01/12/18 15:24 - Medical History PMH: Depression, Seizures Denies: Chronic Kidney Disease - Surgical History Surgical History: No Surg Hx - Family History Family History: States: Unknown Family Hx - Social History Current smoker - smoking cessation education provided: Yes (Light Smoker < 10 Cigarettes Daily) Alcohol: Social Drugs: Denies - Home Medications Home Medications: Ambulatory Orders Medication Instructions Recorded Mirtazapine [Remeron] 30 mg PO HS 01/11/18 OXcarbazepine [Trileptal] 150 mg PO BID 01/11/18 Ondansetron ODT [Zofran ODT] 4 mg PO Q8 PRN #12 odt 01/11/18 - Allergies Allergies/Adverse Reactions: Allergies Allergy/AdvReac Type Severity Reaction Status Date / Time No Known Allergies Allergy Verified 01/10/18 22:44 Review of Systems ROS Statement: Except As Marked, All Systems Reviewed And Found Negative Gastrointestinal: Positive for: Vomiting, Abdominal Pain (right sided post vomiting), Diarrhea Physical Exam - Reviewed Nursing Documentation Reviewed: Yes Vital Signs Reviewed: Yes - Physical Exam Appears: Positive for: No Acute Distress (comfortable) Head Exam: Positive for: ATRAUMATIC, NORMAL INSPECTION, NORMOCEPHALIC Skin: Positive for: Warm, Dry, Pallor Eye Exam: Positive for: EOMI, PERRL, Other (pale conjunctiva ) Neck: Positive for: Normal, Painless ROM, Supple Cardiovascular/Chest: Positive for: Tachycardia, Other (regular rhythm) Respiratory: Positive for: Normal Breath Sounds. Negative for: Respiratory Distress Gastrointestinal/Abdominal: Positive for: Soft, Tenderness (RLQ tenderness) Extremity: Positive for: Normal ROM (x 4 ). Negative for: Deformity Neurologic/Psych: Positive for: Alert, Oriented (x 3). Negative for: Motor/ Sensory Deficits - Laboratory Results Result Diagrams: 01/13/18 07:31 01/13/18 07:31 - ECG O2 Sat by Pulse Oximetry: 100 (RA) Pulse Ox Interpretation: Normal - Critical Care Total Time (In Min): 60 Medical Decision Making Medical Decision Making: Time; 16:46 Impression: GI bleed, hematemesis and melena; anemia from active bleeding Initial plan: --Blood type and screen --CT abd pelvis --CMP --UDS --CBC --PTT --Prothrombin --NS IV --Pepcid 20 mg IVP --Protonix 40 mg IVP --Orthostatic BP --Blood transfusion 18:09 --Labs reviewed reveal a hemoglobin of 6.1. --Consulted Dr. Smith who recommends admitting patient and to administer IV Protonix as indicated. 18:19 --Spoke to web production designer who has accepted patient as well as Dr. Ester Hook. Patient will be admitted to the ICU to the service of Dr. Hook. Admitting diagnosis is GI bleed. ---- Scribe Attestation: Documented by Tania Carvalho, acting as a scribe for Sierra Garcia MD Provider Scribe Attestation: All medical record entries made by the Scribe were at my direction and personally dictated by me. I have reviewed the chart and agree that the record accurately reflects my personal performance of the history, physical exam, medical decision making, and the department course for this patient. I have also personally directed, reviewed, and agree with the discharge instructions and disposition. Disposition - Clinical Impression Clinical Impression: Upper GI hemorrhage - Patient ED Disposition Is Patient to be Admitted: Yes Counseled Patient/Family Regarding: Studies Performed, Diagnosis - Disposition Disposition Time: 18:02 Condition: CRITICAL - Pt Status Changed To: Hospital Disposition Of: Inpatient - Admit Certification Admit to Inpatient:: After my assessment, the patient will require hospitalization for at least two midnights. This is because of the severity of symptoms shown, intensity of services needed, and/or the medical risk in this patient being treated as an outpatient. - POA Present On Arrival: None
[2018-01-12 17:58] LABS: HEMOGLOBIN 6.1 g/dL (12.0-18.0)
[2018-01-12 18:03] LABS: ALB/GLOB RATIO 1.1 (1.0-2.1); ALBUMIN 2.4 g/dL (3.5-5.0); ALT/SGPT 157 U/L (21-72); AST/SGOT 207 U/L (17-59); BLOOD UREA NITROGEN 18 mg/dl (9-20); CALCIUM 8.1 mg/dL (8.4-10.2); GFR AFRICAN-AMERICAN > 60; GFR NON-AFRICAN AMERICAN > 60
[2018-01-12] MEDS ORDERED: Pantoprazole 40 MG in Sodium Chloride 0.9% 100 ML IVPB SCH (18:15)
[2018-01-12] MEDS ORDERED: Iohexol 300 100 ML IJ ONE (18:19)
[2018-01-12] MEDS ORDERED: Sodium Chloride 0.9% 50 ML IV ONE (18:19)
--- NOTE | 2018-01-12 18:29 | CP.PCM.CON ---
History of Present Illness - History of Present Illness History of Present Illness: 27yo M. PMHx seizure disorder, depression, ETOH abuse, esophageal tear. p/w vomiting, dizziness and hematemsis (01/10), but left the ER AMA. Presents back with recurrent hemoptysis and severe symptomatic anemia from blood loss. Review of Systems - Review of Systems All systems: reviewed and no additional remarkable complaints except - Gastrointestinal Gastrointestinal: Abdominal Pain, Hematemesis, Vomiting - Neurological Neurological: Dizziness Past Patient History - Infectious Disease Hx of Infectious Diseases: None - Tetanus Immunizations Tetanus Immunization: Unknown - Past Medical History & Family History Past Medical History?: Yes - Past Social History Alcohol: Social Drugs: Denies - CARDIAC Hx Cardiac Disorders: No - PULMONARY Hx Respiratory Disorders: No - NEUROLOGICAL Hx Seizures: Yes - HEENT Hx HEENT Problems: No - RENAL Hx Chronic Kidney Disease: No - ENDOCRINE/METABOLIC Hx Endocrine Disorders: No - HEMATOLOGICAL/ONCOLOGICAL Hx Blood Disorders: No Hx Blood Transfusions: Yes - INTEGUMENTARY Hx Dermatological Problems: No - MUSCULOSKELETAL/RHEUMATOLOGICAL Hx Musculoskeletal Disorders: No - GASTROINTESTINAL Hx Gastrointestinal Disorders: Yes (Esophageal Tear) - GENITOURINARY/GYNECOLOGICAL Hx Genitourinary Disorders: No - PSYCHIATRIC Hx Depression: Yes - SURGICAL HISTORY Hx Surgeries: No - ANESTHESIA Hx Anesthesia: No Hx Anesthesia Reactions: No Hx Malignant Hyperthermia: No Meds Allergies/Adverse Reactions: Allergies Allergy/AdvReac Type Severity Reaction Status Date / Time No Known Allergies Allergy Verified 01/10/18 22:44 - Medications Medications: Current Medications Pantoprazole Sodium 40 mg/ (Sodium Chloride) 100 mls @ 20 mls/hr IVPB CONT DESIRAE PRN Reason: 8 MG/HR Physical Exam - Head Exam Head Exam: ATRAUMATIC, NORMAL INSPECTION, NORMOCEPHALIC - Eye Exam Eye Exam: EOMI, Normal appearance, PERRL Pupil Exam: NORMAL ACCOMODATION, PERRL - ENT Exam ENT Exam: Mucous Membranes Moist, Normal Exam - Neck Exam Neck exam: Positive for: Normal Inspection - Respiratory Exam Respiratory Exam: Clear to Auscultation Bilateral, NORMAL BREATHING PATTERN - Cardiovascular Exam Cardiovascular Exam: Tachycardia - GI/Abdominal Exam GI & Abdominal Exam: Normal Bowel Sounds, Soft. absent: Tenderness - Neurological Exam Neurological exam: Alert, CN II-XII Intact, Normal Gait, Oriented x3, Reflexes Normal - Psychiatric Exam Psychiatric exam: Anxious Results - Vital Signs Recent Vital Signs: Last Vital Signs Temp 98.9 F 01/12/18 15:24 Pulse 107 H 01/12/18 15:24 Resp 18 01/12/18 15:24 BP 93/53 L 01/12/18 15:24 Pulse Ox 100 01/12/18 18:22 - Labs Result Diagrams: 01/12/18 17:31 01/12/18 17:31 Labs: Laboratory Results - last 24 hr 01/12/18 01/12/18 01/12/18 17:31 17:31 17:31 WBC 3.3 L RBC 1.88 L Hgb 6.1 L* Hct 17.7 L MCV 94.0 MCH 32.6 H MCHC 34.7 RDW 16.8 H Plt Count 79 L D MPV 9.9 Neut % (Auto) 54.6 Lymph % (Auto) 39.2 [place] % (Auto) 5.3 Eos % (Auto) 0.3 Baso % (Auto) 0.6 Neut # (Auto) 1.8 Lymph # (Auto) 1.3 [place] # (Auto) 0.2 Eos # (Auto) 0.0 Baso # (Auto) 0.0 Sodium 136 Potassium 3.9 Chloride 104 Carbon Dioxide 25 Anion Gap 11 BUN 18 Creatinine 0.9 Est GFR ( Amer) > 60 Est GFR (Non-Af Amer) > 60 Random Glucose 92 Calcium 8.1 L Total Bilirubin 1.9 H AST 207 H D ALT 157 H D Alkaline Phosphatase 86 Total Protein 4.6 L Albumin 2.4 L Globulin 2.2 Albumin/Globulin Ratio 1.1 BBK History Checked Patient has bt Assessment & Plan (1) Upper GI hemorrhage Assessment and Plan: 27yo M. PMHx seizure disorder, depression, ETOH abuse, esophageal tear. p/w vomiting, dizziness and hematemsis (01/10), but left the ER AMA. Presents back with recurrent hemoptysis and severe symptomatic anemia from blood loss. Neuro: alert and oriented x 3. Seizure disorder, trileptal held with upper GI bleed. Pulm: breathing spontaneously on room air. CV: orthostatic hypotension, volume resucitation, bolused 1L in ED, continue NS@ 125 Hem: anemia from blood loss, transfusing 2 units PRBC. Renal: no acute issues, will monitor urine output Endo: no acute issues GI: NPO. GI consulted, planning to do EGD in am. Recurrent esophageal tear vs brayan randa. Protonix drip. ID: No acute issues DVT proph - SCD's, no a/c with current bleed GI proph - protonix gtt Code status - full code Critical Care Time spent 35 minutes Multi-disciplinary rounds were performed with house staff, nursing, speech therapy, respiratory therapy, pharmacy and nutrition with integrated input from the primary team/attending and other consulting services. The documented time is cumulative and includes review of patient data/exams/labs/chart review and examination of the patient on rounds and throughout the day; time is exclusive of any procedures or teaching time. Status: Acute
--- NOTE | 2018-01-12 18:33 | CP.PCM.HP ---
History of Present Illness - History of Present Illness History of Present Illness: 27M PMH ETOH abuse (former), hx esophageal tear 1.5 years ago, seizures, anxiety presents to the ED today for acute moderate hematemesis, several episodes, intermittent, associated with large amount of melena "dark as ." Pt was admitted early yesterday morning and absconded during blood transfusion, after ripping out his own IV. BP is around systolic 90s and HR 107-115. Patient appears pale, fatigued. GI consulted, for EGD in AM. Patient receiving bolus NS and 2 units PRBC. Post transfusion CBC is ordered. Admit to ICU for close monitoring of hemodynamic instability 2/2 acute blood loss due to GIB. ROS: per HPI all other systems reviewed and negative PMSH: ETOH abuse (former), hx esophageal tear 1.5 years ago, seizures, anxiety FH: denies SH: minimal cigarette use, marijuana use seldom for anxiety NKDA Present on Admission - Present on Admission Any Indicators Present on Admission: No Past Patient History - Infectious Disease Hx of Infectious Diseases: None - Tetanus Immunizations Tetanus Immunization: Unknown - Past Medical History & Family History Past Medical History?: Yes - Past Social History Alcohol: Social Drugs: Denies - CARDIAC Hx Cardiac Disorders: No - PULMONARY Hx Respiratory Disorders: No - NEUROLOGICAL Hx Seizures: Yes - HEENT Hx HEENT Problems: No - RENAL Hx Chronic Kidney Disease: No - ENDOCRINE/METABOLIC Hx Endocrine Disorders: No - HEMATOLOGICAL/ONCOLOGICAL Hx Blood Disorders: No Hx Blood Transfusions: Yes - INTEGUMENTARY Hx Dermatological Problems: No - MUSCULOSKELETAL/RHEUMATOLOGICAL Hx Musculoskeletal Disorders: No - GASTROINTESTINAL Hx Gastrointestinal Disorders: Yes (Esophageal Tear) - GENITOURINARY/GYNECOLOGICAL Hx Genitourinary Disorders: No - PSYCHIATRIC Hx Depression: Yes - SURGICAL HISTORY Hx Surgeries: No - ANESTHESIA Hx Anesthesia: No Hx Anesthesia Reactions: No Hx Malignant Hyperthermia: No Meds Allergies/Adverse Reactions: Allergies Allergy/AdvReac Type Severity Reaction Status Date / Time No Known Allergies Allergy Verified 01/10/18 22:44 Physical Exam - Constitutional Additional comments: Vitals Reviewed GEN: WDWN, alert, cooperative HEENT: NCAT, PERRL, EOMI HEART: RRR, +S1S2, NO MRG LUNG: CTAB, NO WRR ABD: soft, NT, ND, No HSM, No masses EXT: normal pedal pulses, normal capillary refill NEURO: awake, alert, no focal deficits SKIN: warm, dry PSYCH: normal mood, normal affect Results - Vital Signs Recent Vital Signs: Last Vital Signs Temp 98.9 F 01/12/18 15:24 Pulse 107 H 01/12/18 15:24 Resp 18 01/12/18 15:24 BP 93/53 L 01/12/18 15:24 Pulse Ox 100 01/12/18 18:22 - Labs Result Diagrams: 01/12/18 17:31 01/12/18 17:31 Labs: Laboratory Results - last 24 hr 01/12/18 01/12/18 01/12/18 17:31 17:31 17:31 WBC 3.3 L RBC 1.88 L Hgb 6.1 L* Hct 17.7 L MCV 94.0 MCH 32.6 H MCHC 34.7 RDW 16.8 H Plt Count 79 L D MPV 9.9 Neut % (Auto) 54.6 Lymph % (Auto) 39.2 [place] % (Auto) 5.3 Eos % (Auto) 0.3 Baso % (Auto) 0.6 Neut # (Auto) 1.8 Lymph # (Auto) 1.3 [place] # (Auto) 0.2 Eos # (Auto) 0.0 Baso # (Auto) 0.0 Sodium 136 Potassium 3.9 Chloride 104 Carbon Dioxide 25 Anion Gap 11 BUN 18 Creatinine 0.9 Est GFR ( Amer) > 60 Est GFR (Non-Af Amer) > 60 Random Glucose 92 Calcium 8.1 L Total Bilirubin 1.9 H AST 207 H D ALT 157 H D Alkaline Phosphatase 86 Total Protein 4.6 L Albumin 2.4 L Globulin 2.2 Albumin/Globulin Ratio 1.1 BBK History Checked Patient has bt Assessment & Plan - Assessment and Plan (Free Text) Plan: 27M PMH ETOH abuse (former), hx esophageal tear 1.5 years ago, seizures, anxiety presents to the ED today for acute moderate hematemesis, several episodes, intermittent, associated with large amount of melena "dark as ." Pt was admitted early yesterday morning and absconded during blood transfusion, after ripping out his own IV. BP is around systolic 90s and HR 107-115. Patient appears pale, fatigued. GI consulted, for EGD in AM. Patient receiving bolus NS and 2 units PRBC. Post transfusion CBC is ordered. Admit to ICU for close monitoring of hemodynamic instability 2/2 acute blood loss due to GIB. Acute Blood Loss Anemia Upper GIB H/H 6.1/17.7, consistently dropping 2 grams daily HD stable at present, receiving fluids and 2 units PRBC pending Plt [address] Smith for EGD in AM CTAP pending Elevated Transaminases trending down over past several days monitor Seizures continue Trileptal Anxiety continue Remeron NO AC DVT PPx due to active bleed
--- NOTE | 2018-01-12 18:53 | CT ---
Date of service: 01/12/2018 PROCEDURE: CT Abdomen and Pelvis with contrast HISTORY: Right lower quadrant pain COMPARISON: January 11, 2018. Abdominal ultrasound. TECHNIQUE: Contrast dose: 100 cc Omnipaque 300 Radiation dose: Total exam DLP = 233.54 mGy-cm. This CT exam was performed using one or more of the following dose reduction techniques: Automated exposure control, adjustment of the mA and/or kV according to patient size, and/or use of iterative reconstruction technique. FINDINGS: LOWER THORAX: Unremarkable. LIVER: Hepatic steatosis. No focal masses. No intrahepatic bile duct dilatation or perihepatic ascites. GALLBLADDER AND BILE DUCTS: Unremarkable. PANCREAS: Unremarkable. No gross lesion or ductal dilatation. SPLEEN: Unremarkable. ADRENALS: Unremarkable. No mass. KIDNEYS AND URETERS: Unremarkable. No hydronephrosis. No solid mass. VASCULATURE: Unremarkable. No aortic aneurysm. BOWEL: Unremarkable. No obstruction. No gross mural thickening. The colon is nondistended/oral contrast was not administered. However there are no findings to suggest an acute inflammatory process. Diverticulosis noted. APPENDIX: Normal appendixA normal appendix is identified. . PERITONEUM: Unremarkable. No free fluid. No free air. LYMPH NODES: Unremarkable. No enlarged lymph nodes. BLADDER: Unremarkable. REPRODUCTIVE: Unremarkable. BONES: No acute fracture. OTHER FINDINGS: None. IMPRESSION: No significant or acute findings to account for/ related to the clinical presentation. Additional benign and/or incidental findings described above.
[2018-01-12] MEDS: Sodium Chloride 0.9% 1,000 ML IV SCH (18:57)
[2018-01-12] MEDS ORDERED: Pantoprazole 40 MG in Sodium Chloride 0.9% 100 ML IVPB ONE (19:00)
[2018-01-12 19:09] LABS: PROTHROMBIN TIME 11.4 Seconds (9.8-13.1)
[2018-01-12 19:10] LABS: PARTIAL THROMBOPLASTIN TIME 27.7 Seconds (25.6-37.1)
[2018-01-13] MEDS: Sodium Chloride 0.9% 1,000 ML IV SCH (06:18)
[2018-01-13 07:21] VITALS: O2SAT 100
--- NOTE | 2018-01-13 07:33 | CP.PCM.PN ---
<Jo Pardo - Last Filed: 01/13/18 14:42> Subjective - Date & Time of Evaluation Date of Evaluation: 01/13/18 Time of Evaluation: 08:45 - Subjective Subjective: Patient seen and examined at bedside with Dr. Ogden. He is resting comfortably and denies any active complaints. He states that he has not vomiting in a while and is aware he is going to get an EGD today. He denies chest pain, shortness of breath, nausea, vomiting, abdominal pain and diarrhea. Objective - Vital Signs/Intake and Output Vital Signs (last 24 hours): Temp Pulse Resp BP Pulse Ox 98.3 F 77 16 100/55 L 100 01/13/18 02:30 01/13/18 02:30 01/13/18 02:30 01/13/18 02:30 01/13/18 01:00 Intake and Output: 01/13/18 01/13/18 06:59 18:59 Intake Total 8 Balance 8 - Medications Medications: Current Medications Sodium Chloride (Sodium Chloride 0.9%) 1,000 mls @ 150 mls/hr IV .Q6H40M [facility] Stop: 01/13/18 18:27 Last Admin: 01/13/18 06:18 Dose: 150 mls/hr Mirtazapine (Remeron) 30 mg PO HS [facility] Last Admin: 01/13/18 01:10 Dose: 30 mg Ondansetron HCl (Zofran Inj) 4 mg IVP Q4 PRN PRN Reason: Nausea/Vomiting Oxcarbazepine (Trileptal) 150 mg PO BID [facility] Last Admin: 01/13/18 00:27 Dose: 150 mg Pantoprazole Sodium (Protonix Inj) 40 mg IVP Q12 [facility] - Labs Labs: 01/12/18 17:31 01/12/18 17:31 PT 11.4 Seconds (9.8-13.1) 01/12/18 19:05 INR 1.0 (0.9-1.2) 01/12/18 19:05 APTT 27.7 Seconds (25.6-37.1) 01/12/18 19:05 - Constitutional Appears: Well, Non-toxic, No Acute Distress - Head Exam Head Exam: NORMAL INSPECTION - Eye Exam Eye Exam: Normal appearance - ENT Exam ENT Exam: Mucous Membranes Moist, Normal Oropharynx - Neck Exam Neck Exam: Normal Inspection. absent: Lymphadenopathy, Meningismus, Tenderness , Thyromegaly - Respiratory Exam Respiratory Exam: Clear to Ausculation Bilateral, NORMAL BREATHING PATTERN. absent: Accessory Muscle Use, Chest Wall Tenderness, Decreased Breath Sounds, Prolonged Expiratory Phase, Rales, Rhonchi, Wheezes, Respiratory Distress, Stridor - Cardiovascular Exam Cardiovascular Exam: REGULAR RHYTHM, RRR, +S1, +S2. absent: Clicks, Diastolic murmur, Gallop, JVD, Rubs, +S4, Murmur - GI/Abdominal Exam GI & Abdominal Exam: Soft, Normal Bowel Sounds. absent: Distended, Firm, Guarding, Rigid, Tenderness, Organomegaly, Pulsatile Mass, Rebound - Extremities Exam Extremities Exam: Normal Inspection. absent: Calf Tenderness, Joint Swelling, Pedal Edema, Tenderness - Neurological Exam Neurological Exam: Alert, Awake, Oriented x3 - Psychiatric Exam Psychiatric exam: Normal Affect, Normal Mood - Skin Skin Exam: Dry, Intact, Normal Color, Warm Assessment and Plan (1) Acute blood loss anemia Status: Acute (2) Anxiety Status: Acute (3) Elevated LFTs Status: Acute (4) History of seizure Status: Acute (5) DVT prophylaxis Status: Acute - Assessment and Plan (Free Text) Assessment: 27 male with history of ETOH abuse (former), hx of esophageal tear 1.5 years ago , seizures, anxiety presented to the ED for acute moderate intermittent hematemesis, several episodes, associated with large amount of melena. Patient received 2 units PRBC 01/13/18. Patient is in ICU for close monitoring of hemodynamic instability 2/2 acute blood loss due to GIB. He is scheduled today for EGD. CT abdomen and pelvis 01/12/18: negative. Plan: 1) Acute Blood Loss Anemia secondary to upper GI bleed. 01/13/18: H/H 8.7/25.6 Patient received 2 units PRBC Plt [address] Smith for EGD today 01/13/18 at 2 p.m. 2) Elevated Transaminases trending down continue to monitor 3) History of Seizures -Continue current management: Trileptal 150 mg po BID 4) History of Anxiety -continue current management: Remeron 30 mg HS. 5) DVT Prophylaxis: -SCDs; no anticoagulation due to current active bleeding. <Gage Ogden - Last Filed: 01/13/18 15:16> Objective - Vital Signs/Intake and Output Vital Signs (last 24 hours): Temp Pulse Resp BP Pulse Ox 96.8 F L 81 14 86/51 L 100 01/13/18 15:00 01/13/18 15:00 01/13/18 15:00 01/13/18 15:00 01/13/18 15:00 Intake and Output: 01/13/18 01/13/18 06:59 18:59 Intake Total 8 560 Output Total 500 Balance 8 60 - Medications Medications: Current Medications Mirtazapine (Remeron) 30 mg PO HS [facility] Last Admin: 01/13/18 01:10 Dose: 30 mg Ondansetron HCl (Zofran Inj) 4 mg IVP Q4 PRN PRN Reason: Nausea/Vomiting Oxcarbazepine (Trileptal) 150 mg PO BID [facility] Last Admin: 01/13/18 09:31 Dose: Not Given Pantoprazole Sodium (Protonix Inj) 40 mg IVP Q12 [facility] Last Admin: 01/13/18 09:31 Dose: 40 mg - Labs Labs: 01/13/18 12:55 01/13/18 07:31 PT 11.4 Seconds (9.8-13.1) 01/12/18 19:05 INR 1.0 (0.9-1.2) 01/12/18 19:05 APTT 27.7 Seconds (25.6-37.1) 01/12/18 19:05 Attending/Attestation - Attestation I have personally seen and examined this patient.: Yes I have fully participated in the care of the patient.: Yes I have reviewed all pertinent clinical information, including history, physical exam and plan: Yes Notes (Text): 27 male with history of ETOH abuse (former), hx of esophageal tear 1.5 years ago , seizures, anxiety presented to the ED for acute moderate intermittent hematemesis, several episodes, associated with large amount of melena. Patient received 2 units PRBC 01/13/18. Patient is in ICU for close monitoring of hemodynamic instability 2/2 acute blood loss due to GIB. He is scheduled today for EGD. CT abdomen and pelvis 01/12/18: negative. Plan: 1) Acute Blood Loss Anemia secondary to upper GI bleed. 01/13/18: H/H 8.7/25.6 Patient received 2 units PRBC Plt [address] Smith for EGD today 01/13/18 at 2 p.m. Transfuse PRN check 1pm cbc check cbc in am 2) Elevated Transaminases trending down continue to monitor
[2018-01-13 08:06] LABS: BASO % 0.4 % (0.0-2.0); EOS % 1.5 % (0.0-4.0); HEMOGLOBIN 7.9 g/dL (12.0-18.0); LYMPH # 1.5 K/uL (1.0-4.3); LYMPH % 54.4 % (20.0-40.0); MEAN CELL VOLUME 90.2 fl (80.0-94.0); MEAN CORPUSCULAR HEMOGLOBIN 31.1 pg (27.0-31.0); MEAN CORPUSCULAR HGB CONC 34.4 g/dL (33.0-37.0); MEAN PLATELET VOLUME 9.3 fl (7.2-11.7); MONO # 0.2 K/uL (0.0-0.8); MONO % 8.2 % (0.0-10.0); NEUT % 35.5 % (50.0-75.0); NRBC % 0.1 % (0.0-0.0); RBC 2.55 Mil/uL (4.40-5.90); RED CELL DISTRIBUTION WIDTH 17.9 % (11.5-14.5); WHITE BLOOD COUNT 2.7 K/uL (4.8-10.8)
[2018-01-13 08:30] LABS: ALBUMIN 2.1 g/dL (3.5-5.0); ALT/SGPT 134 U/L (21-72); AST/SGOT 188 U/L (17-59); BLOOD UREA NITROGEN 10 mg/dl (9-20); CALCIUM 7.8 mg/dL (8.4-10.2); GFR AFRICAN-AMERICAN > 60; GFR NON-AFRICAN AMERICAN > 60
[2018-01-13 13:21] LABS: HEMOGLOBIN 8.7 g/dL (12.0-18.0); MEAN CELL VOLUME 91.1 fl (80.0-94.0); MEAN CORPUSCULAR HEMOGLOBIN 30.8 pg (27.0-31.0); MEAN CORPUSCULAR HGB CONC 33.8 g/dL (33.0-37.0); RBC 2.81 Mil/uL (4.40-5.90); RED CELL DISTRIBUTION WIDTH 19.2 % (11.5-14.5); WHITE BLOOD COUNT 2.4 K/uL (4.8-10.8)
--- NOTE | 2018-01-13 14:25 | CP.CCUPN ---
CCU Subjective - Physician Review Events Since Last Encounter (Free Text): 01/13/18 14:25 patient feels much better today, no further vomiting episodes. CCU Objective - Vital Signs / Intake & Output Vital Signs (Last 4 hours): Vital Signs Temp Pulse Resp BP Pulse Ox 01/13/18 12:00 98.6 F 78 16 104/63 100 Intake and Output (Last 8hrs): Intake & Output 01/12/18 01/13/18 01/13/18 22:59 06:59 14:59 Intake Total 8 0 450 Output Total 500 Balance 8 0 -50 Weight 145 lb Intake: IV 450 Intake, Piggyback 8 Blood Product 0 Red Blood Cells Cpd As1 0 Lr Unit [id number] Output: Urine 500 Urine, Voided 500 - Physical Exam Head: Positive for: Atraumatic, Normocephalic Pupils: Positive for: PERRL Extroacular Muscles: Positive for: EOMI Conjunctiva: Positive for: Normal Mouth: Positive for: Moist Mucous Membranes Neck: Positive for: Normal Range of Motion Respiratory/Chest: Positive for: Clear to Auscultation, Good Air Exchange. Negative for: Respiratory Distress Cardiovascular: Positive for: Regular Rate and Rhythm Abdomen: Positive for: Normal Bowel Sounds. Negative for: Tenderness, Distention Upper Extremity: Positive for: Normal Inspection Lower Extremity: Positive for: Normal Inspection Neurological: Positive for: GCS=15, CN II-XII Intact Psychiatric: Positive for: Alert, Oriented x 3 - Medications Active Medications: Active Medications Generic Name Dose Route Start Last Admin Trade Name Freq PRN Reason Stop Dose Admin Sodium Chloride 1,000 mls @ 150 mls/hr 01/12/18 18:30 01/13/18 06:18 Sodium Chloride 0.9% IV 01/13/18 18:27 150 mls/hr .[id number] DESIRAE Administration Mirtazapine 30 mg 01/12/18 22:00 01/13/18 01:10 Remeron PO 30 mg HS DESIRAE Administration Ondansetron HCl 4 mg 01/12/18 18:26 Zofran Inj IVP Q4 PRN Nausea/Vomiting Oxcarbazepine 150 mg 01/12/18 18:30 01/13/18 09:31 Trileptal PO Not Given BID DESIRAE Pantoprazole Sodium 40 mg 01/13/18 09:00 01/13/18 09:31 Protonix Inj IVP 40 mg Q12 DESIRAE Administration - Patient Studies Lab Studies: Lab Studies 01/13/18 01/13/18 01/13/18 Range/Units 12:55 07:31 07:31 WBC 2.4 L 2.7 L (4.8-10.8) K/uL RBC 2.81 L 2.55 L (4.40-5.90) Mil/uL Hgb 8.7 L 7.9 L (12.0-18.0) g/dL Hct 25.6 L 23.0 L (35.0-51.0) % MCV 91.1 90.2 D (80.0-94.0) fl MCH 30.8 31.1 H (27.0-31.0) pg MCHC 33.8 34.4 (33.0-37.0) g/dL RDW 19.2 H 17.9 H (11.5-14.5) % Plt Count 73 L 69 L (130-400) K/uL MPV 9.3 (7.2-11.7) fl Neut % (Auto) 35.5 L (50.0-75.0) % Lymph % (Auto) 54.4 H (20.0-40.0) % [place] % (Auto) 8.2 (0.0-10.0) % Eos % (Auto) 1.5 (0.0-4.0) % Baso % (Auto) 0.4 (0.0-2.0) % Neut # (Auto) 1.0 L (1.8-7.0) K/uL Lymph # (Auto) 1.5 (1.0-4.3) K/uL [place] # (Auto) 0.2 (0.0-0.8) K/uL Eos # (Auto) 0.0 (0.0-0.7) K/uL Baso # (Auto) 0.0 (0.0-0.2) K/uL PT (9.8-13.1) Seconds INR (0.9-1.2) APTT (25.6-37.1) Seconds Sodium 136 (132-148) mmol/l Potassium 3.9 (3.6-5.0) MMOL/L Chloride 106 (98-107) mmol/L Carbon Dioxide 24 (22-30) mmol/L Anion Gap 10 (10-20) BUN 10 (9-20) mg/dl Creatinine 0.9 (0.8-1.5) mg/dl Est GFR ( Amer) > 60 Est GFR (Non-Af Amer) > 60 Random Glucose 77 (75-110) mg/dL Calcium 7.8 L (8.4-10.2) mg/dL Total Bilirubin 1.5 H (0.2-1.3) mg/dl AST 188 H (17-59) U/L ALT 134 H (21-72) U/L Alkaline Phosphatase 67 (38-126) U/L Total Protein 4.2 L (6.3-8.2) G/DL Albumin 2.1 L (3.5-5.0) g/dL Globulin 2.1 L (2.2-3.9) gm/dL Albumin/Globulin Ratio 1.0 (1.0-2.1) Blood Type Antibody Screen Crossmatch BBK History Checked 01/12/18 01/12/18 01/12/18 Range/Units 19:05 17:31 17:31 WBC (4.8-10.8) K/uL RBC (4.40-5.90) Mil/uL Hgb (12.0-18.0) g/dL Hct (35.0-51.0) % MCV (80.0-94.0) fl MCH (27.0-31.0) pg MCHC (33.0-37.0) g/dL RDW (11.5-14.5) % Plt Count (130-400) K/uL MPV (7.2-11.7) fl Neut % (Auto) (50.0-75.0) % Lymph % (Auto) (20.0-40.0) % [place] % (Auto) (0.0-10.0) % Eos % (Auto) (0.0-4.0) % Baso % (Auto) (0.0-2.0) % Neut # (Auto) (1.8-7.0) K/uL Lymph # (Auto) (1.0-4.3) K/uL [place] # (Auto) (0.0-0.8) K/uL Eos # (Auto) (0.0-0.7) K/uL Baso # (Auto) (0.0-0.2) K/uL PT 11.4 (9.8-13.1) Seconds INR 1.0 (0.9-1.2) APTT 27.7 (25.6-37.1) Seconds Sodium 136 (132-148) mmol/l Potassium 3.9 (3.6-5.0) MMOL/L Chloride 104 (98-107) mmol/L Carbon Dioxide 25 (22-30) mmol/L Anion Gap 11 (10-20) BUN 18 (9-20) mg/dl Creatinine 0.9 (0.8-1.5) mg/dl Est GFR ( Amer) > 60 Est GFR (Non-Af Amer) > 60 Random Glucose 92 (75-110) mg/dL Calcium 8.1 L (8.4-10.2) mg/dL Total Bilirubin 1.9 H (0.2-1.3) mg/dl AST 207 H D (17-59) U/L ALT 157 H D (21-72) U/L Alkaline Phosphatase 86 (38-126) U/L Total Protein 4.6 L (6.3-8.2) G/DL Albumin 2.4 L (3.5-5.0) g/dL Globulin 2.2 (2.2-3.9) gm/dL Albumin/Globulin Ratio 1.1 (1.0-2.1) Blood Type A POSITIVE Antibody Screen Negative Crossmatch See Detail BBK History Checked Patient has bt 01/12/18 Range/Units 17:31 WBC 3.3 L (4.8-10.8) K/uL RBC 1.88 L (4.40-5.90) Mil/uL Hgb 6.1 L* (12.0-18.0) g/dL Hct 17.7 L (35.0-51.0) % MCV 94.0 (80.0-94.0) fl MCH 32.6 H (27.0-31.0) pg MCHC 34.7 (33.0-37.0) g/dL RDW 16.8 H (11.5-14.5) % Plt Count 79 L D (130-400) K/uL MPV 9.9 (7.2-11.7) fl Neut % (Auto) 54.6 (50.0-75.0) % Lymph % (Auto) 39.2 (20.0-40.0) % [place] % (Auto) 5.3 (0.0-10.0) % Eos % (Auto) 0.3 (0.0-4.0) % Baso % (Auto) 0.6 (0.0-2.0) % Neut # (Auto) 1.8 (1.8-7.0) K/uL Lymph # (Auto) 1.3 (1.0-4.3) K/uL [place] # (Auto) 0.2 (0.0-0.8) K/uL Eos # (Auto) 0.0 (0.0-0.7) K/uL Baso # (Auto) 0.0 (0.0-0.2) K/uL PT (9.8-13.1) Seconds INR (0.9-1.2) APTT (25.6-37.1) Seconds Sodium (132-148) mmol/l Potassium (3.6-5.0) MMOL/L Chloride (98-107) mmol/L Carbon Dioxide (22-30) mmol/L Anion Gap (10-20) BUN (9-20) mg/dl Creatinine (0.8-1.5) mg/dl Est GFR ( Amer) Est GFR (Non-Af Amer) Random Glucose (75-110) mg/dL Calcium (8.4-10.2) mg/dL Total Bilirubin (0.2-1.3) mg/dl AST (17-59) U/L ALT (21-72) U/L Alkaline Phosphatase (38-126) U/L Total Protein (6.3-8.2) G/DL Albumin (3.5-5.0) g/dL Globulin (2.2-3.9) gm/dL Albumin/Globulin Ratio (1.0-2.1) Blood Type Antibody Screen Crossmatch BBK History Checked Laboratory Results - last 24 hr 01/12/18 01/12/18 01/12/18 17:31 17:31 17:31 WBC 3.3 L RBC 1.88 L Hgb 6.1 L* Hct 17.7 L MCV 94.0 MCH 32.6 H MCHC 34.7 RDW 16.8 H Plt Count 79 L D MPV 9.9 Neut % (Auto) 54.6 Lymph % (Auto) 39.2 [place] % (Auto) 5.3 Eos % (Auto) 0.3 Baso % (Auto) 0.6 Neut # (Auto) 1.8 Lymph # (Auto) 1.3 [place] # (Auto) 0.2 Eos # (Auto) 0.0 Baso # (Auto) 0.0 PT INR APTT Sodium 136 Potassium 3.9 Chloride 104 Carbon Dioxide 25 Anion Gap 11 BUN 18 Creatinine 0.9 Est GFR ( Amer) > 60 Est GFR (Non-Af Amer) > 60 Random Glucose 92 Calcium 8.1 L Total Bilirubin 1.9 H AST 207 H D ALT 157 H D Alkaline Phosphatase 86 Total Protein 4.6 L Albumin 2.4 L Globulin 2.2 Albumin/Globulin Ratio 1.1 Blood Type A POSITIVE Antibody Screen Negative Crossmatch See Detail BBK History Checked Patient has bt 01/12/18 01/13/18 01/13/18 19:05 07:31 07:31 WBC 2.7 L RBC 2.55 L Hgb 7.9 L Hct 23.0 L MCV 90.2 D MCH 31.1 H MCHC 34.4 RDW 17.9 H Plt Count 69 L MPV 9.3 Neut % (Auto) 35.5 L Lymph % (Auto) 54.4 H [place] % (Auto) 8.2 Eos % (Auto) 1.5 Baso % (Auto) 0.4 Neut # (Auto) 1.0 L Lymph # (Auto) 1.5 [place] # (Auto) 0.2 Eos # (Auto) 0.0 Baso # (Auto) 0.0 PT 11.4 INR 1.0 APTT 27.7 Sodium 136 Potassium 3.9 Chloride 106 Carbon Dioxide 24 Anion Gap 10 BUN 10 Creatinine 0.9 Est GFR ( Amer) > 60 Est GFR (Non-Af Amer) > 60 Random Glucose 77 Calcium 7.8 L Total Bilirubin 1.5 H AST 188 H ALT 134 H Alkaline Phosphatase 67 Total Protein 4.2 L Albumin 2.1 L Globulin 2.1 L Albumin/Globulin Ratio 1.0 Blood Type Antibody Screen Crossmatch BBK History Checked 01/13/18 12:55 WBC 2.4 L RBC 2.81 L Hgb 8.7 L Hct 25.6 L MCV 91.1 MCH 30.8 MCHC 33.8 RDW 19.2 H Plt Count 73 L MPV Neut % (Auto) Lymph % (Auto) [place] % (Auto) Eos % (Auto) Baso % (Auto) Neut # (Auto) Lymph # (Auto) [place] # (Auto) Eos # (Auto) Baso # (Auto) PT INR APTT Sodium Potassium Chloride Carbon Dioxide Anion Gap BUN Creatinine Est GFR ( Amer) Est GFR (Non-Af Amer) Random Glucose Calcium Total Bilirubin AST ALT Alkaline Phosphatase Total Protein Albumin Globulin Albumin/Globulin Ratio Blood Type Antibody Screen Crossmatch BBK History Checked Review of Systems - Review of Systems All systems: reviewed and no additional remarkable complaints except (no complaints) Assessment/Plan (1) Upper GI hemorrhage Assessment and plan: 27yo M. PMHx seizure disorder, depression, ETOH abuse, esophageal tear. p/w vomiting, dizziness and hematemsis (01/10), but left the ER AMA. Presents back with recurrent hemoptysis and severe symptomatic anemia from blood loss. Neuro: alert and oriented x 3. Seizure disorder, trileptal held with upper GI bleed. Pulm: breathing spontaneously on room air. CV: hemodynamically stable. Hem: anemia from blood loss stabilized s/p transfusions. Renal: no acute issues, will monitor urine output Endo: no acute issues GI: NPO. No further hematemsis. Protonix IV q12h. EGD to be performed this afternoon. ID: No acute issues DVT proph - SCD's, no a/c with current bleed GI proph - protonix IV q12 Code status - full code Current Visit: Yes Status: Acute
[2018-01-13] MEDS ORDERED: Lactated Ringer's 500 ML IV ONE ×2 (14:32)
[2018-01-13] MEDS ORDERED: Midazolam 2 MG/2 ML VIAL ONE (14:33)
[2018-01-13] MEDS ORDERED: Propofol 10 mg/ml Inj (20 ML) ONE (14:34)
--- NOTE | 2018-01-13 16:29 | CP.PCM.CON ---
History of Present Illness - History of Present Illness History of Present Illness: GI Fellow PGY4, Consult note. Consulted for GI bleed. Jimmy Casarez is a 27yo M with history of alcoholism, Brayan-ita tear presented presenting with hematemesis and melena. Patient and chart history support several episodes of vomiting at work. Initially, vomiting was non- bloody and became bloody after a few episodes of emesis. He complained of vague chest pain and was brought to ED on 01/10/18 via EMS. He was being given pRBCs at that time, however, patient left AMA for an undisclosed "urgent" reason. Patient returned yesterday with black/dark red BMs and was given pRBCs and sent to ICU. Patient previously had "esophageal tear" 1 year ago and had EGD at that time. Patient continues to drink alcohol. He takes Advil PM every night to help him sleep. PMHx: unspecified seizure disorder. See above. PSHx: Surgical clip seen on CXR in upper abdomen. EGD 2016. FMHx: None disclosed. 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 12pt ROS completed and negative except for above. Past Patient History - Infectious Disease Hx of Infectious Diseases: None - Tetanus Immunizations Tetanus Immunization: Unknown - Past Medical History & Family History Past Medical History?: Yes - Past Social History Alcohol: Social Drugs: Denies - CARDIAC Hx Cardiac Disorders: No - PULMONARY Hx Respiratory Disorders: No - NEUROLOGICAL Hx Seizures: Yes - HEENT Hx HEENT Problems: No - RENAL Hx Chronic Kidney Disease: No - ENDOCRINE/METABOLIC Hx Endocrine Disorders: No - HEMATOLOGICAL/ONCOLOGICAL Hx Blood Disorders: No Hx AIDS: No Hx Blood Transfusions: Yes Hx Human Immunodeficiency Virus (HIV): No - INTEGUMENTARY Hx Dermatological Problems: No - MUSCULOSKELETAL/RHEUMATOLOGICAL Hx Musculoskeletal Disorders: No Hx Falls: Yes - GASTROINTESTINAL Hx Gastrointestinal Disorders: Yes (Esophageal Tear) - GENITOURINARY/GYNECOLOGICAL Hx Genitourinary Disorders: No - PSYCHIATRIC Hx Depression: Yes - SURGICAL HISTORY Hx Surgeries: No - ANESTHESIA Hx Anesthesia: No Hx Anesthesia Reactions: No Hx Malignant Hyperthermia: No Has any member of the family had a problem w/ anesthesia?: No Meds Allergies/Adverse Reactions: Allergies Allergy/AdvReac Type Severity Reaction Status Date / Time No Known Allergies Allergy Verified 01/10/18 22:44 - Medications Medications: Current Medications Mirtazapine (Remeron) 30 mg PO HS [facility] Last Admin: 01/13/18 01:10 Dose: 30 mg Ondansetron HCl (Zofran Inj) 4 mg IVP Q4 PRN PRN Reason: Nausea/Vomiting Oxcarbazepine (Trileptal) 150 mg PO BID [facility] Last Admin: 01/13/18 09:31 Dose: Not Given Pantoprazole Sodium (Protonix Inj) 40 mg IVP Q12 [facility] Last Admin: 01/13/18 09:31 Dose: 40 mg Physical Exam - Constitutional Appears: Non-toxic, No Acute Distress - Head Exam Head Exam: ATRAUMATIC, NORMAL INSPECTION - Eye Exam Eye Exam: EOMI, Normal appearance - ENT Exam ENT Exam: Mucous Membranes Moist, Normal Exam - Respiratory Exam Respiratory Exam: Clear to Auscultation Bilateral, NORMAL BREATHING PATTERN. absent: Wheezes - Cardiovascular Exam Cardiovascular Exam: REGULAR RHYTHM, +S1, +S2 - GI/Abdominal Exam GI & Abdominal Exam: Normal Bowel Sounds, Soft. absent: Guarding, Organomegaly , Tenderness - Rectal Exam Rectal Exam: Deferred - Extremities Exam Extremities exam: Positive for: normal inspection - Neurological Exam Neurological exam: Alert, CN II-XII Intact, Oriented x3 - Psychiatric Exam Psychiatric exam: Normal Affect, Normal Mood - Skin Skin Exam: Dry, Normal Color Results - Vital Signs Recent Vital Signs: Last Vital Signs Temp 96.8 F L 01/13/18 15:15 Pulse 94 H 01/13/18 15:15 Resp 15 01/13/18 15:15 BP 107/41 L 01/13/18 15:15 Pulse Ox 100 01/13/18 15:15 - Labs Result Diagrams: 01/13/18 12:55 01/13/18 07:31 Labs: Laboratory Results - last 24 hr 01/12/18 01/12/18 01/12/18 17:31 17:31 17:31 WBC 3.3 L RBC 1.88 L Hgb 6.1 L* Hct 17.7 L MCV 94.0 MCH 32.6 H MCHC 34.7 RDW 16.8 H Plt Count 79 L D MPV 9.9 Neut % (Auto) 54.6 Lymph % (Auto) 39.2 [place] % (Auto) 5.3 Eos % (Auto) 0.3 Baso % (Auto) 0.6 Neut # (Auto) 1.8 Lymph # (Auto) 1.3 [place] # (Auto) 0.2 Eos # (Auto) 0.0 Baso # (Auto) 0.0 PT INR APTT Sodium 136 Potassium 3.9 Chloride 104 Carbon Dioxide 25 Anion Gap 11 BUN 18 Creatinine 0.9 Est GFR ( Amer) > 60 Est GFR (Non-Af Amer) > 60 Random Glucose 92 Calcium 8.1 L Total Bilirubin 1.9 H AST 207 H D ALT 157 H D Alkaline Phosphatase 86 Total Protein 4.6 L Albumin 2.4 L Globulin 2.2 Albumin/Globulin Ratio 1.1 Blood Type A POSITIVE Antibody Screen Negative Crossmatch See Detail BBK History Checked Patient has bt 01/12/18 01/13/18 01/13/18 19:05 07:31 07:31 WBC 2.7 L RBC 2.55 L Hgb 7.9 L Hct 23.0 L MCV 90.2 D MCH 31.1 H MCHC 34.4 RDW 17.9 H Plt Count 69 L MPV 9.3 Neut % (Auto) 35.5 L Lymph % (Auto) 54.4 H [place] % (Auto) 8.2 Eos % (Auto) 1.5 Baso % (Auto) 0.4 Neut # (Auto) 1.0 L Lymph # (Auto) 1.5 [place] # (Auto) 0.2 Eos # (Auto) 0.0 Baso # (Auto) 0.0 PT 11.4 INR 1.0 APTT 27.7 Sodium 136 Potassium 3.9 Chloride 106 Carbon Dioxide 24 Anion Gap 10 BUN 10 Creatinine 0.9 Est GFR ( Amer) > 60 Est GFR (Non-Af Amer) > 60 Random Glucose 77 Calcium 7.8 L Total Bilirubin 1.5 H AST 188 H ALT 134 H Alkaline Phosphatase 67 Total Protein 4.2 L Albumin 2.1 L Globulin 2.1 L Albumin/Globulin Ratio 1.0 Blood Type Antibody Screen Crossmatch BBK History Checked 01/13/18 12:55 WBC 2.4 L RBC 2.81 L Hgb 8.7 L Hct 25.6 L MCV 91.1 MCH 30.8 MCHC 33.8 RDW 19.2 H Plt Count 73 L MPV Neut % (Auto) Lymph % (Auto) [place] % (Auto) Eos % (Auto) Baso % (Auto) Neut # (Auto) Lymph # (Auto) [place] # (Auto) Eos # (Auto) Baso # (Auto) PT INR APTT Sodium Potassium Chloride Carbon Dioxide Anion Gap BUN Creatinine Est GFR ( Amer) Est GFR (Non-Af Amer) Random Glucose Calcium Total Bilirubin AST ALT Alkaline Phosphatase Total Protein Albumin Globulin Albumin/Globulin Ratio Blood Type Antibody Screen Crossmatch BBK History Checked Assessment & Plan - Assessment and Plan (Free Text) Assessment: 27M with history of alcoholism, upper gi bleed presenting with acute anemia and hematemesis/melena. #Acute blood loss anemia from upper GI bleed #Brayan-Blount tear #NSAIDs induced gastritis #Presumed alcoholic hepatitis #Thrombocytopenia #Alcoholism #Hepatosteatosis Plan: -Afeb/HDS -EGD 01/13/18 found brayan-blount tear, gastritis, gastropathy, duodenitis. Old endoclip, benign appearance. -F/U histology and H. Pylori pathology -Continue PPI PO BID -Must avoid alcohol and NSAIDs. -Continue as needed Zofran. -Must seek help for alcohol abuse. Psychiatric help, AA encouraged. -Okay to start soft and bland regular diet. -If Hb stable tomorrow and no further signs of active bleed, patient can be discharged tomorrow. - Date & Time Date: 01/13/18 Time: 14:00
[2018-01-13 17:12] VITALS: RESP 20
[2018-01-14 00:13] VITALS: BP 94/58; PULSE 85
[2018-01-14 05:15] LABS: HEMOGLOBIN 8.2 g/dL (12.0-18.0); MEAN CELL VOLUME 90.5 fl (80.0-94.0); MEAN CORPUSCULAR HEMOGLOBIN 31.1 pg (27.0-31.0); MEAN CORPUSCULAR HGB CONC 34.3 g/dL (33.0-37.0); RBC 2.64 Mil/uL (4.40-5.90); RED CELL DISTRIBUTION WIDTH 18.1 % (11.5-14.5)
[2018-01-14 08:58] LABS: BARBITURATES, UR NEGATIVE (NEGATIVE); BENZODIAZEPINES, UR NEGATIVE (NEGATIVE); OPIATES, UR NEGATIVE (NEGATIVE); PHENCYCLIDINE, UR NEGATIVE (NEGATIVE)
--- NOTE | 2018-01-14 10:30 | CP.PCM.PN ---
Subjective - Date & Time of Evaluation Date of Evaluation: 01/14/18 Time of Evaluation: 10:27 - Subjective Subjective: GI Fellow PGY4, progress note. Afeb/HDS. Tolerating diet. no acute events overnight. Denies n/v, melena. 12pt ROS completed and negative except for above. Objective - Vital Signs/Intake and Output Vital Signs (last 24 hours): Temp Pulse Resp BP Pulse Ox 98.7 F 85 20 94/58 L 100 01/14/18 08:00 01/14/18 00:12 01/14/18 00:12 01/14/18 00:12 01/14/18 00:12 Intake and Output: 01/14/18 01/14/18 06:59 18:59 Intake Total 460 Output Total 400 Balance 60 - Medications Medications: Current Medications Mirtazapine (Remeron) 30 mg PO HS [facility] Last Admin: 01/13/18 21:10 Dose: 30 mg Ondansetron HCl (Zofran Inj) 4 mg IVP Q4 PRN PRN Reason: Nausea/Vomiting Oxcarbazepine (Trileptal) 150 mg PO BID [facility] Last Admin: 01/14/18 08:46 Dose: 150 mg Pantoprazole Sodium (Protonix Inj) 40 mg IVP Q12 [facility] Last Admin: 01/14/18 08:45 Dose: 40 mg - Labs Labs: 01/14/18 04:55 01/13/18 07:31 PT 11.4 Seconds (9.8-13.1) 01/12/18 19:05 INR 1.0 (0.9-1.2) 01/12/18 19:05 APTT 27.7 Seconds (25.6-37.1) 01/12/18 19:05 - Constitutional Appears: Well - Head Exam Head Exam: ATRAUMATIC, NORMAL INSPECTION, NORMOCEPHALIC - Eye Exam Eye Exam: EOMI, Normal appearance, PERRL - ENT Exam ENT Exam: Mucous Membranes Moist, Normal Exam - Respiratory Exam Respiratory Exam: Clear to Ausculation Bilateral, NORMAL BREATHING PATTERN - Cardiovascular Exam Cardiovascular Exam: REGULAR RHYTHM, +S1, +S2. absent: Murmur - GI/Abdominal Exam GI & Abdominal Exam: Soft, Normal Bowel Sounds. absent: Tenderness - Extremities Exam Extremities Exam: Full ROM, Normal Capillary Refill, Normal Inspection. absent : Joint Swelling, Pedal Edema - Neurological Exam Neurological Exam: Alert, Awake, CN II-XII Intact, Normal Gait, Oriented x3 - Psychiatric Exam Psychiatric exam: Normal Affect, Normal Mood - Skin Skin Exam: Dry, Intact, Normal Color, Warm Assessment and Plan - Assessment and Plan (Free Text) Assessment: 27M with history of alcoholism, upper gi bleed presenting with acute anemia and hematemesis/melena. #Acute blood loss anemia from upper GI bleed #Brayan-Blount tear #NSAIDs induced gastritis #Presumed alcoholic hepatitis #Thrombocytopenia #Alcoholism #Hepatosteatosis Plan: -Afeb/HDS -EGD 01/13/18 found brayan-blount tear, gastritis, gastropathy, duodenitis. Old endoclip, benign appearance. -F/U histology and H. Pylori pathology -Continue PPI PO BID -Must avoid alcohol and NSAIDs. -Avoid hepatotoxic medications (Remeron, Dilantin) -F/U CBC and LFTs as outpt to resolution of abnormalities. -Continue as needed Zofran. -Must seek help for alcohol abuse. Psychiatric help, AA encouraged. -[place] diet. Avoid chunks of meat. -Hb stable. No active bleeding. Okay to D/C today.
[2018-01-14 12:23] VITALS: TEMP 99.1
--- NOTE | 2018-01-14 12:27 | CP.PCM.DIS ---
Provider - Provider Date of Admission: 01/12/18 18:02 Attending physician: Ester Hook DO Consults: GI : Dr Smith Time Spent in preparation of Discharge (in minutes): 30 Diagnosis - Discharge Diagnosis (1) Upper GI hemorrhage Status: Acute (2) Deyanira-Blount tear Status: Acute (3) Acute blood loss anemia Status: Acute (4) Elevated LFTs Status: Acute (5) History of seizure Status: Chronic (6) Anxiety Status: Chronic Hospital Course - Lab Results Lab Results: Most Recent Lab Values WBC 3.0 K/uL (4.8-10.8) L 01/14/18 04:55 RBC 2.64 Mil/uL (4.40-5.90) L 01/14/18 04:55 Hgb 8.2 g/dL (12.0-18.0) L 01/14/18 04:55 Hct 23.9 % (35.0-51.0) L 01/14/18 04:55 MCV 90.5 fl (80.0-94.0) 01/14/18 04:55 MCH 31.1 pg (27.0-31.0) H 01/14/18 04:55 MCHC 34.3 g/dL (33.0-37.0) 01/14/18 04:55 RDW 18.1 % (11.5-14.5) H 01/14/18 04:55 Plt Count 70 K/uL (130-400) L 01/14/18 04:55 MPV 9.3 fl (7.2-11.7) 01/13/18 07:31 Neut % (Auto) 35.5 % (50.0-75.0) L 01/13/18 07:31 Lymph % (Auto) 54.4 % (20.0-40.0) H 01/13/18 07:31 [place] % (Auto) 8.2 % (0.0-10.0) 01/13/18 07:31 Eos % (Auto) 1.5 % (0.0-4.0) 01/13/18 07:31 Baso % (Auto) 0.4 % (0.0-2.0) 01/13/18 07:31 Neut # (Auto) 1.0 K/uL (1.8-7.0) L 01/13/18 07:31 Lymph # (Auto) 1.5 K/uL (1.0-4.3) 01/13/18 07:31 [place] # (Auto) 0.2 K/uL (0.0-0.8) 01/13/18 07:31 Eos # (Auto) 0.0 K/uL (0.0-0.7) 01/13/18 07:31 Baso # (Auto) 0.0 K/uL (0.0-0.2) 01/13/18 07:31 PT 11.4 Seconds (9.8-13.1) 01/12/18 19:05 INR 1.0 (0.9-1.2) 01/12/18 19:05 APTT 27.7 Seconds (25.6-37.1) 01/12/18 19:05 Sodium 136 mmol/l (132-148) 01/13/18 07:31 Potassium 3.9 MMOL/L (3.6-5.0) 01/13/18 07:31 Chloride 106 mmol/L (98-107) 01/13/18 07:31 Carbon Dioxide 24 mmol/L (22-30) 01/13/18 07:31 Anion Gap 10 (10-20) 01/13/18 07:31 BUN 10 mg/dl (9-20) 01/13/18 07:31 Creatinine 0.9 mg/dl (0.8-1.5) 01/13/18 07:31 Est GFR ( Amer) > 60 01/13/18 07:31 Est GFR (Non-Af Amer) > 60 01/13/18 07:31 Random Glucose 77 mg/dL (75-110) 01/13/18 07:31 Calcium 7.8 mg/dL (8.4-10.2) L 01/13/18 07:31 Total Bilirubin 1.5 mg/dl (0.2-1.3) H 01/13/18 07:31 AST 188 U/L (17-59) H 01/13/18 07:31 ALT 134 U/L (21-72) H 01/13/18 07:31 Alkaline Phosphatase 67 U/L (38-126) 01/13/18 07:31 Total Protein 4.2 G/DL (6.3-8.2) L 01/13/18 07:31 Albumin 2.1 g/dL (3.5-5.0) L 01/13/18 07:31 Globulin 2.1 gm/dL (2.2-3.9) L 01/13/18 07:31 Albumin/Globulin Ratio 1.0 (1.0-2.1) 01/13/18 07:31 Urine Opiates Screen Negative (NEGATIVE) 01/14/18 08:18 Urine Methadone Screen Negative (NEGATIVE) 01/14/18 08:18 Ur Barbiturates Screen Negative (NEGATIVE) 01/14/18 08:18 Ur Phencyclidine Scrn Negative (NEGATIVE) 01/14/18 08:18 Ur Amphetamines Screen Negative (NEGATIVE) 01/14/18 08:18 U Benzodiazepines Scrn Negative (NEGATIVE) 01/14/18 08:18 U Oth Cocaine Metabols Negative (NEGATIVE) 01/14/18 08:18 U Cannabinoids Screen Negative (NEGATIVE) 01/14/18 08:18 Blood Type A POSITIVE 01/12/18 17:31 Antibody Screen Negative 01/12/18 17:31 Crossmatch See Detail 01/12/18 17:31 BBK History Checked Patient has bt 01/12/18 17:31 - Hospital Course Hospital Course: 27 male with history of ETOH abuse (former), hx of esophageal tear 1.5 years ago , seizures, anxiety presented to the ED for acute moderate intermittent hematemesis, several episodes, associated with large amount of melena. Patient received 2 units PRBC 01/13/18. He was admitted to ICU for close monitoring of hemodynamic instability 2/2 acute blood loss due to GIB. EGD done : Non bleeding Deyanira Blount Tear with stigmata of recent bleed. Esophagitis, Gastritis CT abdomen and pelvis 01/12/18: negative. 1) Acute Blood Loss Anemia secondary to upper GI bleed due to Deyanira Blount Tear Patient received 2 units PRBC Hgb dropped to 6.1 s/p EGD showing Deyanira Blount Tear - nonbleeding Pt received Protonix IV No further GI bleed since admission - cleared by Dr Smith for discharge d/c home on PO Protonix BID no ASA, NSAIDs 2) Elevated Transaminases ? sec to Alcohol trending down Hepatitis neg 3) History of Seizures -Continue current management: Trileptal 150 mg po BID 4) History of Anxiety -continue current management: Remeron 30 mg HS. 5. Thrombocytopenia prob sec to ETOH DVT Prophylaxis: -SCDs; no anticoagulation due to current active bleeding. Discharge Exam - Head Exam Head Exam: ATRAUMATIC, NORMAL INSPECTION, NORMOCEPHALIC - Eye Exam Eye Exam: EOMI, Normal appearance, PERRL Pupil Exam: NORMAL ACCOMODATION - ENT Exam ENT Exam: Mucous Membranes Moist, Normal External Ear Exam - Neck Exam Neck exam: Full Rom - Respiratory Exam Respiratory Exam: NORMAL BREATHING PATTERN. absent: Respiratory Distress - Cardiovascular Exam Cardiovascular Exam: REGULAR RHYTHM, +S1, +S2 - GI/Abdominal Exam GI & Abdominal Exam: Normal Bowel Sounds, Soft. absent: Tenderness - Extremities Exam Extremities exam: full ROM, normal capillary refill, normal inspection, pedal pulses present - Back Exam Back exam: FULL ROM. absent: CVA tenderness (L), CVA tenderness (R) - Neurological Exam Neurological exam: Alert, CN II-XII Intact, Oriented x3, Reflexes Normal - Psychiatric Exam Psychiatric exam: Normal Affect, Normal Mood - Skin Skin Exam: Dry, Warm Discharge Plan - Discharge Medications Prescriptions: Pantoprazole [Protonix EC Tab] 40 mg PO BID #60 ect - Follow Up Plan Condition: STABLE Disposition: HOME/ ROUTINE Instructions: Gastrointestinal Bleeding (DC) Additional Instructions: no ASA, NSAIDs, Acetaminophen abstain from alcohol ff up at the FP clinic in 1 wk ff up with DR Smith in 1-2 wks ff up with Psych sara Referrals: [facility] [Outside] Alli Smith MD [Staff Provider] -
[2018-01-14] MEDS ORDERED: Pantoprazole 40 mg EC Tab PO SCH (17:00)
== END 2018-01-14 14:08 | disposition home or self-care (01) | DRG 369 ==
LOC: H.ER 15:05 → H.ERHOLD 18:02 → H.ICU/CCU 19:41
PROVIDERS: ADMIT Student in an Organized Health Care Education/Training Program; ATTEND Student in an Organized Health Care Education/Training Program
PROC: 0DB78ZX Excision of Stomach, Pylorus, Via Natural or Artificial Opening Endoscopic, Diagnostic (ICD-10-PCS; 2018-01-13)
PROC: 30233N1 Transfusion of Nonautologous Red Blood Cells into Peripheral Vein, Percutaneous Approach (ICD-10-PCS; 2018-01-13)
PROC: 0DB68ZX Excision of Stomach, Via Natural or Artificial Opening Endoscopic, Diagnostic (ICD-10-PCS; principal; 2018-01-13 13:45)
DX: K22.6 Gastro-esophageal laceration-hemorrhage syndrome (principal); D62 Acute posthemorrhagic anemia; F41.9 Anxiety disorder, unspecified; G40.909 Epilepsy, unspecified, not intractable, without status epilepticus; F32.9 Major depressive disorder, single episode, unspecified; I95.1 Orthostatic hypotension; F17.210 Nicotine dependence, cigarettes, uncomplicated; F10.20 Alcohol dependence, uncomplicated; K76.0 Fatty (change of) liver, not elsewhere classified; K29.80 Duodenitis without bleeding; K31.9 Disease of stomach and duodenum, unspecified; K21.0 Gastro-esophageal reflux disease with esophagitis; K29.70 Gastritis, unspecified, without bleeding; T39.395A Adverse effect of other nonsteroidal anti-inflammatory drugs [NSAID], initial encounter; R79.89 Other specified abnormal findings of blood chemistry; R74.0 Nonspecific elevation of levels of transaminase and lactic acid dehydrogenase [LDH]; D69.59 Other secondary thrombocytopenia; Y90.9 Presence of alcohol in blood, level not specified